=== PATIENT | female | born 1970 | race Caucasian/White ===

== ENCOUNTER → 2021-09-04 | Day surgery (SDC) | payer BC ==
--- NOTE | 2021-09-04 12:33 | RAD REPORT ---
EXAM DESCRIPTION: US - Guided FNA Non Breast - 09/04/2021 11:07 am CLINICAL HISTORY: E04.1 COMPARISON: No comparisons FINDINGS: Preoperative diagnosis: Left thyroid mass.. Post operative diagnosis: Same. Conscious Sedation: None Fluoroscopy time: None Contrast used: None Estimated blood loss: Minimal Specimens:25 gauge x 4 FNA specimens The left thyroid was prepped and draped in the usual sterile fashion. 1% lidocaine was infiltrated in to the subcutaneous tissues for local anesthesia. Real time ultrasound scanning of the left thyroid d emonstrated multiple masses, the largest inferiorly measuring 3.6 x 3.0 cm. Under ultrasound guidance , using 25 gauge FNA needles, 4 specimens were obtained of the largest mass and sent to pathology for evaluation. There were no complications. IMPRESSION: Successful ultrasound-guided FNA procedure left thyroid mass.
== END ==
LOC: FNA 10:07
PROVIDERS: ATTEND Nurse Practitioner Family
PROC: 0GJK3ZZ Inspection of Thyroid Gland, Percutaneous Approach (ICD-10-PCS; principal; 2021-09-04)
DX: E04.1 Nontoxic single thyroid nodule (principal)
CPT/HCPCS: 88162

== ENCOUNTER 2024-10-03 11:20 | Inpatient (IN) | payer BC ==
--- OUTSIDE RECORDS SUMMARY | 2024-10-03 18:14 | XMS REPORT | Continuity of Care Document ---
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 Name Role Phone BRITT PETTIT Attending Clinician Unavailable BERLIN POSADAS Attending Clinician Unavail able SHERINE JAMA Attending Clinician Unavailable TANYA_Susan Attending Clinician Unavailable ALICIA_GCJessieZW_Kadiderricka_S Attending Clinician Unavaila david Nicholson Attending Clinician Unavailable Lilly Martínez Attending Clinician [phone] Ravi Lo Attending Clinician [phone] JUAN CARLOS Attending Clinician Unavailable CONNIE Attending Clinician Unavailable Germania Calix Attending Clinician [phone] Rachid Attending Clinician Unavailable GERMANIA CALIX Attending Clinician Unavaila BRITT Mckinnon Admitting Clinician Unavailable SISYASSINE_Susan Admitting Clinician Unavailable ALICIA_SAYW_Devi_S Admitting Clinician Unavaila david Nicholson Admitting Clinician Unavailable WATERS_Kirstie Admitting Clinician Unavailable CONNIE Admitting Clinician Unavailable Rachid Admitting Clinician Unavailable Payers Payer Name Policy Type Policy Number Effective Date Expirati on Date Source [place] [id number] 2023 [place] [id number] 2018 00[place] [id number] 2019 00:00:00 Problems Condition Name Condition Details Condition Category Status Onset Date Resolution Date Last Treatment Date Treating Clinician Comments Source Disorder of thyroid gland Disorder of Thyroid Gland Problem Active 6 00:00: 00 [facility] Hypertrigl yceridemia Hypertrigl yceridemia Problem Active 2020-10 0 00:00: 00 [facility] Depressive disorder Depressive Disorder Problem Active 12-19 00:00: 00 [facility] Body mass index 40+ - severely obese Body Mass Index 40+ - Severely Obese Problem Active 12-19 00:00: 00 [facility] Essential hypertensi on Essential Hypertensi on Problem Active 04-12 00:00: 00 [facility] Obstructiv e sleep apnea of adult Obstructiv e Sleep Apnea of Adult Problem Active 06-08 00:00: 00 [facility] Hypothyroi dism Hypothyroi dism Problem Active 05-20 00:00: 00 [facility] Vitamin D deficiency Vitamin D Deficiency Problem Active 05-20 00:00: 00 [facility] Anxiety Anxiety Problem Active 05-20 00:00: 00 [facility] Tobacco user Tobacco User Problem Active 12-09 00:00: 00 [facility] Non-rheuma tic mitral regurgitat ion Non-rheuma tic Mitral Regurgitat ion Problem Active 12-09 00:00: 00 [facility] Mitral valve prolapse Mitral Valve Prolapse Problem Active 12-09 00:00: 00 [facility] Lymphedema of lower extremity Lymphedema of Lower Extremity Problem Active 12-09 00:00: 00 [facility] Edema of lower extremity Edema of Lower Extremity Problem Active 12-09 00:00: 00 [facility] Dyspnea on exertion Dyspnea on Exertion Problem Active 12-09 00:00: 00 [facility] Hypertensi ve disorder Hypertensi ve Disorder Problem Active [facility] Allergies, Adverse Reactions, Alerts Allergy Name Allergy Type Status Severity Reaction(s) Onset Date Inactive Date Treating Clinician Comments Source ALLERGIE S NOT ON FILE SYSTEMIC Active MHEOUT ALLERGIE S NOT ON FILE SYSTEMIC Active [facility]OUT Social History Smoking Status Start Date Stop Date Source Current Every Day Smoker [facility] Light Tobacco Smoker [facility] Medications Ordered Medication Name Filled Medication Name Start Date Stop Date Current Medication? Ordering Clinician Indication Dosage Frequency Signature (SIG) Comments Components Source dicyclomine 20 mg tablet Take 1 tablet 4 times a day by oral route as needed. dicyclomine 20 mg tablet Take 1 tablet 4 times a day by oral route as needed. No 1 QID dicyclomin e 20 mg tablet Take 1 tablet 4 times a day by oral route as needed. [facility] hydrochloro thiazide 25 mg tablet TAKE 1 TABLET BY MOUTH EVERY DAY hydrochloro thiazide 25 mg tablet TAKE 1 TABLET BY MOUTH EVERY DAY No hydrochlor othiazide 25 mg tablet TAKE 1 TABLET BY MOUTH EVERY DAY [facility] omeprazole 40 mg capsule,del ayed release TAKE 1 CAPSULE BY MOUTH EVERY DAY omeprazole 40 mg capsule,del ayed release TAKE 1 CAPSULE BY MOUTH EVERY DAY No omeprazole 40 mg capsule,de layed release TAKE 1 CAPSULE BY MOUTH EVERY DAY [facility] sertraline 50 mg tablet TAKE 1 TABLET BY MOUTH EVERY DAY FOR 30 DAYS sertraline 50 mg tablet TAKE 1 TABLET BY MOUTH EVERY DAY FOR 30 DAYS No sertraline 50 mg tablet TAKE 1 TABLET BY MOUTH EVERY DAY FOR 30 DAYS [facility] Sutab 1.479-0.188 -0.225 gram tablet Take 12 tablets twice a day by oral route for 1 day. Sutab 1.479-0.188 -0.225 gram tablet Take 12 tablets twice a day by oral route for 1 day. No 12 BID Sutab 1.479-0.18 8-0.225 gram tablet Take 12 tablets twice a day by oral route for 1 day. [facility] candesartan 4 mg tablet TAKE 1 TABLET BY MOUTH EVERY DAY candesartan 4 mg tablet TAKE 1 TABLET BY MOUTH EVERY DAY No 1 Q1D candesarta n 4 mg tablet TAKE 1 TABLET BY MOUTH EVERY DAY [facility] fenofibrate micronized 67 mg capsule TAKE 1 CAPSULE BY MOUTH EVERYDAY AT BEDTIME fenofibrate micronized 67 mg capsule TAKE 1 CAPSULE BY MOUTH EVERYDAY AT BEDTIME No 1capsul e(s) Q1D fenofibrat e micronized 67 mg capsule TAKE 1 CAPSULE BY MOUTH EVERYDAY AT BEDTIME [facility] levothyroxi ne 75 mcg tablet TAKE 1 TABLET BY MOUTH EVERY DAY levothyroxi ne 75 mcg tablet TAKE 1 TABLET BY MOUTH EVERY DAY No 1 Q1D levothyrox ine 75 mcg tablet TAKE 1 TABLET BY MOUTH EVERY DAY [facility] Auvelity 45 mg-105 mg tablet, extended release Take 1 tablet twice a day by oral route for 90 days. Auvelity 45 mg-105 mg tablet, extended release Take 1 tablet twice a day by oral route for 90 days. No 1 BID Auvelity 45 mg-105 mg tablet, extended release Take 1 tablet twice a day by oral route for 90 days. [facility] cholecalcif khris (vitamin D3) 1,250 mcg (50,000 unit) capsule TAKE 1 CAPSULE EVERY WEEK BY ORAL ROUTE DIRECTED FOR 42 DAYS, FOR LOW VITAMIN D LEVEL. cholecalcif khris (vitamin D3) 1,250 mcg (50,000 unit) capsule TAKE 1 CAPSULE EVERY WEEK BY ORAL ROUTE DIRECTED FOR 42 DAYS, FOR LOW VITAMIN D LEVEL. No cholecalci ferol (vitamin D3) 1,250 mcg (50,000 unit) capsule TAKE 1 CAPSULE EVERY WEEK BY ORAL ROUTE DIRECTED FOR 42 DAYS, FOR LOW VITAMIN D LEVEL. [facility] levothyroxi ne 25 mcg tablet TAKE 1 TABLET EVERY DAY BY ORAL ROUTE BEFORE MEALS FOR 42 DAYS, FOR THYROID FUNCTION. levothyroxi ne 25 mcg tablet TAKE 1 TABLET EVERY DAY BY ORAL ROUTE BEFORE MEALS FOR 42 DAYS, FOR THYROID FUNCTION. No levothyrox ine 25 mcg tablet TAKE 1 TABLET EVERY DAY BY ORAL ROUTE BEFORE MEALS FOR 42 DAYS, FOR THYROID FUNCTION. [facility] omeprazole 40 mg capsule,del ayed release TAKE 1 CAPSULE BY MOUTH EVERY DAY omeprazole 40 mg capsule,del ayed release TAKE 1 CAPSULE BY MOUTH EVERY DAY No omeprazole 40 mg capsule,de layed release TAKE 1 CAPSULE BY MOUTH EVERY DAY [facility] Immunizations Ordered Immunization Name Filled Immunization Name Date Status Comments Source COVID-19 (SARS-COV-2) vaccine, unspecified COVID-19 (SARS-COV-2) vaccine, unspecified Unknown Completed [facility] Vital Signs Vital Name Observation Time Observation Value Comments S ource Body Weight 2024-07-09 00:00:00 4229 [oz_av] [facility] Height 2024-07-09 00:00:00 63 [in_i] [facility] BMI (Body Mass Index) 2024-07-09 00:00:00 46.8 kg/m2 [facility] BP Systolic 2024-05-26 00:00:00 132 mm[Hg] [facility] BMI (Body Mass Index) 2024-05-26 00:00:00 48 kg/m2 [facility] BP Diastolic 2024-05-26 00:00:00 86 mm[Hg] [facility] Body Weight 2024-05-26 00:00:00 4336 [oz_av] [facility] Height 2024-05-26 00:00:00 63 [in_i] [facility] BP Systolic 2024-03-24 00:00:00 148 mm[Hg] [facility] Height 2024-03-24 00:00:00 63 [in_i] [facility] Body Weight 2024-03-24 00:00:00 4480 [oz_av] [facility] BMI (Body Mass Index) 2024-03-24 00:00:00 49.6 kg/m2 [facility] BP Diastolic 2024-03-24 00:00:00 76 mm[Hg] [facility] Body Weight 2023-12-02 00:00:00 4545.6 [oz_av] [facility] Height 2023-12-02 00:00:00 63 [in_i] [facility] BMI (Body Mass Index) 2023-12-02 00:00:00 50.3 kg/m2 [facility] BP Systolic 2023-12-02 00:00:00 152 mm[Hg] [facility] BP Diastolic 2023-12-02 00:00:00 78 mm[Hg] [facility] BP Systolic 2023-11-20 00:00:00 170 mm[Hg] [facility] BP Diastolic 2023-11-20 00:00:00 84 mm[Hg] [facility] Body Weight 2023-11-20 00:00:00 4554 [oz_av] [facility] Height 2023-11-20 00:00:00 63 [in_i] [facility] BMI (Body Mass Index) 2023-11-20 00:00:00 50.4 kg/m2 [facility] Height 2023-06-26 00:00:00 63 [in_i] [facility] Body Weight 2023-06-26 00:00:00 4373 [oz_av] [facility] BP Systolic 2023-06-26 00:00:00 140 mm[Hg] [facility] BP Diastolic 2023-06-26 00:00:00 73 mm[Hg] [facility] BMI (Body Mass Index) 2023-06-26 00:00:00 48.4 kg/m2 [facility] BP Diastolic 2023-04-09 00:00:00 77 mm[Hg] [facility] Height 2023-04-09 00:00:00 63 [in_i] [facility] BMI (Body Mass Index) 2023-04-09 00:00:00 48 kg/m2 [facility] BP Systolic 2023-04-09 00:00:00 147 mm[Hg] [facility] Body Weight 2023-04-09 00:00:00 4336 [oz_av] [facility] BP Diastolic 2023-03-31 00:00:00 79 mm[Hg] [facility] Height 2023-03-31 00:00:00 63 [in_i] [facility] BMI (Body Mass Index) 2023-03-31 00:00:00 48.6 kg/m2 [facility] BP Systolic 2023-03-31 00:00:00 145 mm[Hg] [facility] Body Weight 2023-03-31 00:00:00 274.4 [lb_av] [facility] BP Diastolic 2023-03-26 00:00:00 84 mm[Hg] [facility] Height 2023-03-26 00:00:00 63 [in_i] [facility] BMI (Body Mass Index) 2023-03-26 00:00:00 49.1 kg/m2 [facility] BP Systolic 2023-03-26 00:00:00 161 mm[Hg] [facility] Body Weight 2023-03-26 00:00:00 4432 [oz_av] [facility] BP Diastolic 2023-01-22 00:00:00 75 mm[Hg] [facility] Height 2023-01-22 00:00:00 63 [in_i] [facility] BMI (Body Mass Index) 2023-01-22 00:00:00 51.2 kg/m2 [facility] BP Systolic 2023-01-22 00:00:00 158 mm[Hg] [facility] Body Weight 2023-01-22 00:00:00 4624 [oz_av] [facility] BP Diastolic 2022-05-14 00:00:00 76 mm[Hg] [facility] Height 2022-05-14 00:00:00 63 [in_i] [facility] BMI (Body Mass Index) 2022-05-14 00:00:00 49.2 kg/m2 [facility] BP Systolic 2022-05-14 00:00:00 166 mm[Hg] [facility] Body Weight 2022-05-14 00:00:00 4448 [oz_av] [facility] BP Diastolic 2022-05-08 00:00:00 87 mm[Hg] [facility] Height 2022-05-08 00:00:00 63 [in_i] [facility] BMI (Body Mass Index) 2022-05-08 00:00:00 48.9 kg/m2 [facility] BP Systolic 2022-05-08 00:00:00 153 mm[Hg] [facility] Body Weight 2022-05-08 00:00:00 4416 [oz_av] [facility] BP Diastolic 2022-04-29 00:00:00 68 mm[Hg] [facility] Height 2022-04-29 00:00:00 63 [in_i] [facility] BMI (Body Mass Index) 2022-04-29 00:00:00 48.5 kg/m2 [facility] BP Systolic 2022-04-29 00:00:00 144 mm[Hg] [facility] Body Weight 2022-04-29 00:00:00 4384 [oz_av] [facility] BP Diastolic 2022-01-25 00:00:00 59 mm[Hg] [facility] Height 2022-01-25 00:00:00 63 [in_i] [facility] BMI (Body Mass Index) 2022-01-25 00:00:00 48.7 kg/m2 [facility] BP Systolic 2022-01-25 00:00:00 152 mm[Hg] [facility] Body Weight 2022-01-25 00:00:00 4400 [oz_av] [facility] BP Diastolic 2022-01-17 00:00:00 73 mm[Hg] [facility] Height 2022-01-17 00:00:00 63 [in_i] [facility] BMI (Body Mass Index) 2022-01-17 00:00:00 49.1 kg/m2 [facility] BP Systolic 2022-01-17 00:00:00 157 mm[Hg] [facility] Body Weight 2022-01-17 00:00:00 4432 [oz_av] [facility] BP Diastolic 2022-01-08 00:00:00 67 mm[Hg] [facility] Height 2022-01-08 00:00:00 63 [in_i] [facility] BMI (Body Mass Index) 2022-01-08 00:00:00 49.1 kg/m2 [facility] BP Systolic 2022-01-08 00:00:00 144 mm[Hg] [facility] Body Weight 2022-01-08 00:00:00 4432 [oz_av] [facility] BP Diastolic 2021-12-21 00:00:00 64 mm[Hg] [facility] Height 2021-12-21 00:00:00 63 [in_i] [facility] BMI (Body Mass Index) 2021-12-21 00:00:00 31.2 kg/m2 [facility] BP Systolic 2021-12-21 00:00:00 164 mm[Hg] [facility] Body Weight 2021-12-21 00:00:00 2816 [oz_av] [facility] BP Diastolic 2021-12-14 00:00:00 61 mm[Hg] [facility] Height 2021-12-14 00:00:00 63 [in_i] [facility] BMI (Body Mass Index) 2021-12-14 00:00:00 47.7 kg/m2 [facility] BP Systolic 2021-12-14 00:00:00 138 mm[Hg] [facility] Body Weight 2021-12-14 00:00:00 4304 [oz_av] [facility] BP Diastolic 2021-12-07 00:00:00 75 mm[Hg] [facility] Height 2021-12-07 00:00:00 63 [in_i] [facility] BMI (Body Mass Index) 2021-12-07 00:00:00 48.2 kg/m2 [facility] BP Systolic 2021-12-07 00:00:00 152 mm[Hg] [facility] Body Weight 2021-12-07 00:00:00 4352 [oz_av] [facility] BP Diastolic 2021-11-30 00:00:00 70 mm[Hg] [facility] Height 2021-11-30 00:00:00 63 [in_i] [facility] BMI (Body Mass Index) 2021-11-30 00:00:00 48 kg/m2 [facility] BP Systolic 2021-11-30 00:00:00 113 mm[Hg] [facility] Body Weight 2021-11-30 00:00:00 4338.4 [oz_av] [facility] BP Diastolic 2021-11-22 00:00:00 80 mm[Hg] [facility] Height 2021-11-22 00:00:00 63 [in_i] [facility] BMI (Body Mass Index) 2021-11-22 00:00:00 47.7 kg/m2 [facility] BP Systolic 2021-11-22 00:00:00 134 mm[Hg] [facility] Body Weight 2021-11-22 00:00:00 4309 [oz_av] [facility] BP Diastolic 2021-11-14 00:00:00 74 mm[Hg] [facility] Height 2021-11-14 00:00:00 63 [in_i] [facility] BMI (Body Mass Index) 2021-11-14 00:00:00 48.3 kg/m2 [facility] BP Systolic 2021-11-14 00:00:00 148 mm[Hg] [facility] Body Weight 2021-11-14 00:00:00 4362 [oz_av] [facility] BP Diastolic 2021-11-02 00:00:00 68 mm[Hg] [facility] Height 2021-11-02 00:00:00 63 [in_i] [facility] BMI (Body Mass Index) 2021-11-02 00:00:00 48.8 kg/m2 [facility] BP Systolic 2021-11-02 00:00:00 148 mm[Hg] [facility] Body Weight 2021-11-02 00:00:00 4410 [oz_av] [facility] BP Diastolic 2021-10-25 00:00:00 73 mm[Hg] [facility] Height 2021-10-25 00:00:00 63 [in_i] [facility] BMI (Body Mass Index) 2021-10-25 00:00:00 49.2 kg/m2 [facility] BP Systolic 2021-10-25 00:00:00 145 mm[Hg] [facility] Body Weight 2021-10-25 00:00:00 4448 [oz_av] [facility] BP Diastolic 2021-08-15 00:00:00 70 mm[Hg] [facility] Height 2021-08-15 00:00:00 63 [in_i] [facility] BMI (Body Mass Index) 2021-08-15 00:00:00 50.6 kg/m2 [facility] BP Systolic 2021-08-15 00:00:00 133 mm[Hg] [facility] Body Weight 2021-08-15 00:00:00 4569.6 [oz_av] [facility] BP Diastolic 2021-08-02 00:00:00 66 mm[Hg] [facility] Height 2021-08-02 00:00:00 63 [in_i] [facility] BMI (Body Mass Index) 2021-08-02 00:00:00 50.7 kg/m2 [facility] BP Systolic 2021-08-02 00:00:00 138 mm[Hg] [facility] Body Weight 2021-08-02 00:00:00 4576 [oz_av] [facility] BP Diastolic 2021-07-18 00:00:00 85 mm[Hg] [facility] Height 2021-07-18 00:00:00 63 [in_i] [facility] BMI (Body Mass Index) 2021-07-18 00:00:00 50.8 kg/m2 [facility] BP Systolic 2021-07-18 00:00:00 154 mm[Hg] [facility] Body Weight 2021-07-18 00:00:00 4588.8 [oz_av] [facility] BP Diastolic 2021-04-17 00:00:00 69 mm[Hg] [facility] Height 2021-04-17 00:00:00 63 [in_i] [facility] BMI (Body Mass Index) 2021-04-17 00:00:00 49.1 kg/m2 [facility] BP Systolic 2021-04-17 00:00:00 143 mm[Hg] [facility] Body Weight 2021-04-17 00:00:00 4438.4 [oz_av] [facility] BP Diastolic 2020-12-19 00:00:00 69 mm[Hg] [facility] Height 2020-12-19 00:00:00 63 [in_i] [facility] BMI (Body Mass Index) 2020-12-19 00:00:00 48.9 kg/m2 [facility] BP Systolic 2020-12-19 00:00:00 145 mm[Hg] [facility] Body Weight 2020-12-19 00:00:00 4416 [oz_av] [facility] Procedures Procedure Date / Time Performed Performing Clinicia n Source XR, chest, 2 view 2023-11-20 00:00:00 [facility] US, abdomen, complete 2023-03-31 00:00:00 [facility] US, thyroid 2021-08-02 00:00:00 [facility] US, abdomen + pelvis 2021-04-17 00:00:00 [facility] electrocardiogram 2020-12-19 00:00:00 [facility] XR, chest, 2 view 2020-12-19 00:00:00 [facility] Plan of Care Planned Activity Planned Date Details Comments Source Diagnostic Test Pending 2023-03-31 00:00:00 Hepatitis C IgG Ab, qual, serum [code = Hepatitis C IgG Ab, qual, serum] [facility] Encounters Start Date/Time End Date/Time Encounter Type Admission Type Attending [facility] Care Department Encounter ID Source 2024-09-28 03:19:00 Inpatient ER BRITT PETTIT [facility] [id number] [facility] 2023-04-14 13:30:00 Inpatient BERLIN BACH [facility] [id number] [facility] 2024-09-29 11:10:00 2024-10-03 16:40:00 Inpatient ER BRITT PETTIT [facility] [id number] [facility] 2024-09-27 21:48:00 2024-09-27 21:48:00 Emergency ER SHERINE JAMA [facility] [id number] [facility] 2024-07-09 00:00:00 2024-07-09 00:00:00 FELIZ Saul, CREATIVE INTERN, SUPPLY CHAIN PLANNER-C: [address], [place] [address] , Ph. [facility], FELIZ Saul, SUPPLY CHAIN PLANNER-C [id number] 004 [facility] 2024-05-26 00:00:00 2024-05-26 00:00:00 CANDIDA SoaresP-C: [address], [place] [address] , Ph. [facility], CANDIDA SOARESP-C [id number] [facility] 2024-04-05 12:19:48 2024-04-05 12:19:58 Outpatient Elective MHEOUT MHEOUT [id number] [facility] 2024-03-24 00:00:00 2024-03-24 00:00:00 Dory Cain, [facility]: [address], [place] [address] , Ph. [phone] [facility], [facility], [facility] [id number] [facility] 2023-12-02 00:00:00 2023-12-02 00:00:00 Lilly Martínez, MSN, CREATIVE INTERN, SUPPLY CHAIN PLANNER-C: [address], [place] [address] , Ph. [facility], Lilly Martínez, MSN, SUPPLY CHAIN PLANNER-C [id number] [facility] 2023-11-20 00:00:00 2023-11-20 00:00:00 Outpatient [facility] [id number] [facility] 2023-11-20 00:00:00 2023-11-20 00:00:00 Lilly Martínez, MSN, CREATIVE INTERN, SUPPLY CHAIN PLANNER-C: [address], [place] [address] , Ph. [facility], Lilly Martínez, MSN, SUPPLY CHAIN PLANNER-C [id number] [facility] 2023-11-12 00:00:00 2023-11-12 00:00:00 Outpatient [facility] [id number] [facility] 2023-08-01 00:00:00 2023-08-01 00:00:00 Outpatient GC_[email or web address] diyala_S [facility] [id number] [facility] 2023-07-31 00:00:2023-07-31 00:00:00 Outpatient [facility] [id number] [facility] 2023-06-26 00:00:00 2023-06-26 00:00:00 Lilly Martínez, MSN, CREATIVE INTERN, SUPPLY CHAIN PLANNER-C: [address], [place] [address] , Ph. [facility], Lilly Martínez, MSN, SUPPLY CHAIN PLANNER-C [id number] [facility] 2023-06-06 00:00:00 2023-06-06 00:00:00 Outpatient [facility] [id number] [facility] 2023-05-07 00:00:00 2023-05-07 00:00:00 Outpatient [facility] [id number] [facility] 2023-05-07 00:00:00 2023-05-07 00:00:00 FELIZ Saul, CREATIVE INTERN, SUPPLY CHAIN PLANNER-C: [address], [address], [place] [address] , Ph. [facility], Lilly Martínez, FELIZ, SUPPLY CHAIN PLANNER-C [id number] [facility] 2023-04-09 00:00:00 2023-04-09 00:00:00 Outpatient [facility] [id number] [facility] 2023-04-09 00:00:00 2023-04-09 00:00:00 Outpatient [facility] [id number] [facility] 2023-04-09 00:00:00 2023-04-09 00:00:00 FELIZ Saul, CREATIVE INTERN, SUPPLY CHAIN PLANNER-C: Rhonda [address], [address], [place] [address] , Ph. [facility], Lilly Martínez, MSN, SUPPLY CHAIN PLANNER-C [id number] [facility] 2023-04-01 00:00:00 2023-04-01 00:00:00 Outpatient Ferguson_Ro bin [facility] [id number] [facility] 2023-03-31 00:00:00 2023-03-31 00:00:00 Outpatient Ferguson_Ro bin [facility] [id number] [facility] 2023-03-31 00:00:00 2023-03-31 00:00:00 Berlin Posadas MD: [id number], [address], [place] [address] , Ph. [facility] [id number] [facility] 2023-03-26 00:00:00 2023-03-26 00:00:00 FELIZ Saul, CREATIVE INTERN, SUPPLY CHAIN PLANNER-C: Emma Sharma [place], [address], [place] [address] , Ph. [facility], Lilly Martínez, MSN, SUPPLY CHAIN PLANNER-C [id number] [facility] 2023-03-11 00:00:00 2023-03-11 00:00:00 Outpatient Ferguson_Ro bin [facility] [id number] [facility] 2023-02-19 00:00:00 2023-02-19 00:00:00 Outpatient [facility] [id number] [facility] 2023-01-22 00:00:00 2023-01-22 00:00:00 Outpatient [facility] [id number] [facility] 2023-01-22 00:00:00 2023-01-22 00:00:00 Lilly Martínez, MSN, CREATIVE INTERN, SUPPLY CHAIN PLANNER-C: [address], [address], [place] [address] , Ph. [facility], Lilly Martínez, MSN, SUPPLY CHAIN PLANNER-C [id number] [facility] 2022-05-14 00:00:00 2022-05-14 00:00:00 Outpatient [facility] [id number] [facility] 2022-05-14 00:00:00 2022-05-14 00:00:00 Outpatient Lilly Martínez [facility] [id number] 2022-05-14 00:00:00 2022-05-14 00:00:00 FELIZ Saul, CREATIVE INTERN, SUPPLY CHAIN PLANNER-C: Rhonda [address], [address], [place] [address] , Ph. [facility], Lilly Martínez, FELIZ, SUPPLY CHAIN PLANNER-C [id number] [facility] 2022-05-10 00:00:00 2022-05-10 00:00:00 Outpatient [facility] [id number] [facility] 2022-05-10 00:00:00 2022-05-10 00:00:00 Outpatient Lilly Martínez [facility] [id number] 2022-05-10 00:00:00 2022-05-10 00:00:00 FELIZ Saul, CREATIVE INTERN, SUPPLY CHAIN PLANNER-C: Rhonda [address], [address], [place] [address] , Ph. [facility], Lilly Martínez, MSN, SUPPLY CHAIN PLANNER-C [id number] [facility] 2022-05-09 00:00:00 2022-05-09 00:00:00 Outpatient [facility] [id number] [facility] 2022-05-09 00:00:00 2022-05-09 00:00:00 Outpatient Lilly Martínez [facility] [id number] 2022-05-09 00:00:00 2022-05-09 00:00:00 Lilly Martínez, MSN, CREATIVE INTERN, SUPPLY CHAIN PLANNER-C: Emma Ruiz [facility] [address], [address], [place] [address] , Ph. [facility], Lilly Martínez, MSN, SUPPLY CHAIN PLANNER-C [id number] [facility] 2022-05-08 00:00:00 2022-05-08 00:00:00 Outpatient [facility] [id number] [facility] 2022-05-08 00:00:00 2022-05-08 00:00:00 Outpatient Lilly Martínez [facility] [id number] 2022-05-08 00:00:00 2022-05-08 00:00:00 Lilly Martínez, MSN, CREATIVE INTERN, SUPPLY CHAIN PLANNER-C: Emma Ruiz [facility] [address], [address], [place] [address] , Ph. [facility], Lilly Martínez, MSN, SUPPLY CHAIN PLANNER-C [id number] [facility] 2022-04-29 04:38:00 2022-04-29 04:38:00 Outpatient [facility]C [facility] [id number] [facility] 2022-04-29 00:00:00 2022-04-29 00:00:00 Outpatient Ravi Lo [facility] [id number] 2022-04-29 00:00:00 2022-04-29 00:00:00 Ravi Lo, DO: [address], [place] [address] , Ph. [facility], DR. LO [id number] [facility] 2022-04-03 04:29:00 2022-04-03 04:29:00 Outpatient [facility] [id number] [facility] 2022-04-03 00:00:00 2022-04-03 00:00:00 FELIZ Saul, CREATIVE INTERN, SUPPLY CHAIN PLANNER-C: [address], [address], [place] [address] , Ph. [facility], FELIZ Saul, SUPPLY CHAIN PLANNER-C [id number] [facility] 2022-04-03 00:00:00 2022-04-03 00:00:00 Outpatient Lilly Martínez [facility] [id number] 2022-03-01 11:44:00 2022-03-01 11:44:00 Outpatient [facility]C [facility] [id number] [facility] 2022-03-01 00:00:00 2022-03-01 00:00:00 Lilly Martínez, MSN, CREATIVE INTERN, SUPPLY CHAIN PLANNER-C: Emma Ruiz [address], [address], [place] [address] , Ph. [facility], Lilly Martínez MSN, SUPPLY CHAIN PLANNER-C [id number] [facility] 2022-03-01 00:00:00 2022-03-01 00:00:00 Outpatient Lilly Martínez [facility] [id number] 1042-05-02 05:20:00 2022-02-04 05:20:00 Outpatient [facility] [id number] [facility] 2022-01-25 03:04:00 2022-01-25 03:04:00 Outpatient [facility] [id number] [facility] 2022-01-25 00:00:00 2022-01-25 00:00:00 FELIZ Saul, CREATIVE INTERN, SUPPLY CHAIN PLANNER-C: Rhonda [address], [address], [place] [address] , Ph. [facility], FELIZ Saul, SUPPLY CHAIN PLANNER-C [id number] [facility] 2022-01-25 00:00:00 2022-01-25 00:00:00 Outpatient Lilly Martínez [facility] [id number] 2022-01-17 05:46:00 2022-01-17 05:46:00 Outpatient TANYA_Susan [facility] [id number] [facility] 2022-01-17 00:00:00 2022-01-17 00:00:00 Lilly Martínez MSN, CREATIVE INTERN, SUPPLY CHAIN PLANNER-C: [address], [address], [place] [address] , Ph. [facility], Lilly Martínez, MSN, SUPPLY CHAIN PLANNER-C [id number] [facility] 2022-01-08 11:44:00 2022-01-08 11:44:00 Outpatient [facility]_C [facility] [id number] [facility] 2022-01-08 00:00:00 2022-01-08 00:00:00 Lilly Martínze, MSN, CREATIVE INTERN, SUPPLY CHAIN PLANNER-C: [address], [address], [place] [address] , Ph. [facility], Lilly Martínez, MSN, SUPPLY CHAIN PLANNER-C [id number] [facility] 2022-01-08 00:00:00 2022-01-08 00:00:00 Outpatient Lilly Martínez [facility] [id number] 2021-12-31 08:54:00 2021-12-31 08:54:00 Outpatient [facility]C [facility] [id number] [facility] 2021-12-21 12:23:00 2021-12-21 12:23:00 Outpatient [facility]_C [facility] [id number] [facility] 2021-12-21 00:00:00 2021-12-21 00:00:00 Lilly Martínez, MSN, CREATIVE INTERN, SUPPLY CHAIN PLANNER-C: [address], [address], [place] [address] , Ph. [facility], Lilly Martínez, MSN, SUPPLY CHAIN PLANNER-C [id number] [facility] 2021-12-21 00:00:00 2021-12-21 00:00:00 Outpatient Lilly Martínez [facility] [id number] 2021-12-17 07:50:00 2021-12-17 07:50:00 Outpatient [facility]_C [facility] [id number] [facility] 2021-12-14 10:34:00 2021-12-14 10:34:00 Outpatient [facility]C [facility] [id number] [facility] 2021-12-14 00:00:00 2021-12-14 00:00:00 Lilly Martínez, MSN, CREATIVE INTERN, SUPPLY CHAIN PLANNER-C: [address], [address], [place] [address] , Ph. [facility], Lilly Martínez, MSN, SUPPLY CHAIN PLANNER-C [id number] [facility] 2021-12-14 00:00:00 2021-12-14 00:00:00 Outpatient Lilly Martínez [facility] [id number] 2021-12-11 05:55:00 2021-12-11 05:55:00 Outpatient [facility]IS[facility]_C [facility] [id number] [facility] 2021-12-11 00:00:00 2021-12-11 00:00:00 Lilly Martínez, MSN, CREATIVE INTERN, SUPPLY CHAIN PLANNER-C: [address], [place] [address] , Ph. [facility], Lilly Martínez, MSN, SUPPLY CHAIN PLANNER-C [id number] [facility] 2021-12-11 00:00:00 2021-12-11 00:00:00 Outpatient Tanya, Lilly [facility] [id number] 2021-12-07 05:27:00 2021-12-07 05:27:00 Outpatient [facility]C [facility] [id number] [facility] 2021-12-07 00:00:00 2021-12-07 00:00:00 Lilly Martínez, MSN, CREATIVE INTERN, SUPPLY CHAIN PLANNER-C: Emma Ru[address], [address], [address], [place] [address] , Ph. [facility], Lilly Martínez, MSN, SUPPLY CHAIN PLANNER-C [id number] [facility] 2021-12-07 00:00:00 2021-12-07 00:00:00 Outpatient Lilly Martínez [facility] [id number] 2021-12-03 08:57:00 2021-12-03 08:57:00 Outpatient [facility]C [facility] [id number] [facility] 2021-11-30 12:07:00 2021-11-30 12:07:00 Outpatient [facility]C [facility] [id number] [facility] 2021-11-30 00:00:00 2021-11-30 00:00:00 Lilly Martínez, MSN, CREATIVE INTERN, SUPPLY CHAIN PLANNER-C: Emma [address], [address], [address], [place] [address] , Ph. [facility], Lilly Martínez, MSN, SUPPLY CHAIN PLANNER-C [id number] [facility] 2021-11-30 00:00:00 2021-11-30 00:00:00 Outpatient Lilly Martínez [facility] [id number] 2021-11-27 12:19:00 2021-11-27 12:19:00 Outpatient SISSON_C [facility] [id number] [facility] 2021-11-26 08:21:00 2021-11-26 08:21:00 Outpatient WATERS_S [facility] [id number] [facility] 2021-11-22 10:51:00 2021-11-22 10:51:00 Outpatient WATERS_S [facility] [id number] [facility] 2021-11-22 00:00:00 2021-11-22 00:00:00 Lilly Martínez, MSN, CREATIVE INTERN, SUPPLY CHAIN PLANNER-C: [address], [address], [place] [address] , Ph. [facility], Lilly Martínez, MSN, SUPPLY CHAIN PLANNER-C [id number] [facility] 2021-11-22 00:00:00 2021-11-22 00:00:00 Outpatient Lilly Martínez [facility] [id number] 2021-11-19 02:48:00 2021-11-19 02:48:00 Outpatient WATERS_S [facility] [id number] [facility] 2021-11-14 11:21:00 2021-11-14 11:21:00 Outpatient WATERS_S [facility] [id number] [facility] 2021-11-14 00:00:00 2021-11-14 00:00:00 Lilly Marítnez, MSN, CREATIVE INTERN, SUPPLY CHAIN PLANNER-C: [address], [place] [address] , Ph. [facility], Lilly Martínez, MSN, SUPPLY CHAIN PLANNER-C [id number] [facility] 2021-11-14 00:00:00 2021-11-14 00:00:00 Outpatient Lilly Martínez [facility] [id number] 2021-11-02 11:58:00 2021-11-02 11:58:00 Outpatient WATERS_S [facility] [id number] [facility] 2021-11-02 00:00:00 2021-11-02 00:00:00 Lilly Martínez, MSN, CREATIVE INTERN, SUPPLY CHAIN PLANNER-C: [address], [address], [place] [address] , Ph. [facility], Lilly Martínez, MSN, SUPPLY CHAIN PLANNER-C [id number] [facility] 2021-11-02 00:00:00 2021-11-02 00:00:00 Outpatient Lilly Martínez [facility] [id number] 2021-10-25 05:12:00 2021-10-25 05:12:00 Outpatient ARPAN_S [facility] [id number] [facility] 2021-10-25 00:00:00 2021-10-25 00:00:00 Outpatient Lilly Martínez [facility] [id number] 2021-10-25 00:00:00 2021-10-25 00:00:00 Lilly Martínez, MSN, CREATIVE INTERN, SUPPLY CHAIN PLANNER-C: [address], [place] [address] , Ph. [facility], Lilly Martínez, MSN, SUPPLY CHAIN PLANNER-C [id number] [facility] 2021-10-24 05:47:00 2021-10-24 05:47:00 Outpatient W[facility]ERS_S [facility] [id number] [facility] 2021-10-04 04:17:00 2021-10-04 04:17:00 Outpatient WATERS_S [facility] [id number] [facility] 2021-08-15 05:25:00 2021-08-15 05:25:00 Outpatient SCHAUBROECK _L [facility] [id number] [facility] 2021-08-15 00:00:00 2021-08-15 00:00:00 Outpatient Germania Calix [facility] [id number] 2021-08-15 00:00:00 2021-08-15 00:00:00 Germania talbot, AGNP-C: [address] [place] [address], [address] [place] [address] , Ph. [facility] [id number] [facility] 2021-08-02 03:43:00 2021-08-02 03:43:00 Outpatient SCHAUBROECK _L [facility] [id number] [facility] 2021-08-02 00:00:00 2021-08-02 00:00:00 Germania talbot AGNP-C: [address] [place] [address], [address] [place] [address] , Ph. [facility] [id number] [facility] 2021-08-02 00:00:00 2021-08-02 00:00:00 Outpatient Germania Calix [facility] [id number] 2021-07-18 01:02:00 2021-07-18 01:02:00 Outpatient SCHAUBROECK _L [facility] [id number] [facility] 2021-07-18 00:00:00 2021-07-18 00:00:00 PAIGE Deleon-C: [address] [place] [address], [address] [place] [address] , Ph. [facility] [id number] [facility] 2021-07-18 00:00:00 2021-07-18 00:00:00 Outpatient JennGermania jean-baptiste [facility] [id number] 2021-04-17 05:48:00 2021-04-17 05:48:00 Outpatient SCHAUBROECK _L [facility] [id number] [facility] 2021-04-17 00:00:00 2021-04-17 00:00:00 PAIGE Deleon-C: [address] [place] [address], [address] [place] [address] , Ph. [facility] [id number] [facility] 2021-04-17 00:00:00 2021-04-17 00:00:00 Outpatient JennGermania jean-baptiste [facility] [id number] 2020-12-19 01:59:00 2020-12-19 01:59:00 Outpatient SCHAUBROECK _L [facility] [id number] [facility] 2020-12-19 00:00:00 2020-12-19 00:00:00 Germania talbot AGNP-: [address] [facility], [address], [place] [address] , Ph. [facility] [place] [facility] [id number] [facility] 2020-12-19 00:00:00 2020-12-19 00:00:00 Outpatient Germania Calix [facility] [id number] 2020-06-29 09:44:00 2020-06-29 09:44:00 Outpatient Rachid [facility] [id number] [facility] 2020-04-13 11:53:00 2020-04-13 11:53:00 Outpatient HILTON CUEVASGERMANIA HU [facility] [id number] [facility] Results Test Description Test Time Test Comments Results Result Co mments Source [facility] Ag [Presence] in Respiratory specimen by Rapid [id number] 14:58:00* Test Item Value Reference Range Interpretation Comme nts SARS CoV 2 (test code = SARS CoV 2) negative [facility] [Mass/volume] in [id number] 00:00:00* Test Item Value Reference Range Interpretation Comme nts Thiamine [Moles/volume] in B lood (test code = 28978-4) 151.7 nmol/L 66.5-200.0 [facility] (T3).reverse [Mass/volume] in Serum or [id number] 00:00:00* Test Item Value Reference Range Interpretation Comme nts Triiodothyronine (T3).revers e [Mass/volume] in Serum or Plasma (test code = 3052-8) 14.1 NG/dL 9.2-24.1 [facility] and TSH panel - Serum or Plasma 2021-07-26 00:00:00* Test Item Value Reference Range Interpretation Comme nts Thyrotropin [Units/volume] i n Serum or Plasma by Detection limit <= 0.005 mIU/L (test code = 15374-1) 10.400 uIU/mL 0.450-4.500 H Thyroxine (T4) free [Mass/volume] in Serum or Plasma (test code = 3024-7) 0.82 NG/dL 0.82-1.77 [facility] W Auto Differential panel - [id number] 00:00:00* Test Item Value Reference Range Interpretation Comme nts Leukocytes [#/volume] in Blo od by Automated count (test code = 6690-2) 9.5 x10e3/uL 3.4-10.8 Erythrocytes [#/volume] in Blood by Automated count (test code = 789-8) 4.27 x10e6/uL 3.77-5.28 Hemoglobin [Mass/volume] in Blood (test code = 718-7) 12.5 g/dL 11.1-15.9 Hematocrit [Volume Fraction] of Blood by Automated count (test code = 4544-3) 38.6 % 34.0-46.6 Erythrocyte mean corpuscular volume [Entitic volume] by Automated count (test code = 787-2) 90 fL 79-97 Erythrocyte mean corpuscular hemoglobin [Entitic mass] by Automated count (test code = 785-6) 29.3 pg 26.6-33.0 Erythrocyte mean corpuscular hemoglobin concentration [Mass/volume] by Automated count (test code = 786-4) 32.4 g/dL 31.5-35.7 Erythrocyte distribution wid th [Ratio] by Automated count (test code = 788-0) 13.1 % 11.7-15.4 Platelets [#/volume] in Bloo d by Automated count (test code = 777-3) 303 x10e3/uL 150-450 Neutrophils/100 leukocytes i n Blood by Automated count (test code = 770-8) 64 % not estab. Lymphocytes/100 leukocytes i n Blood by Automated count (test code = 736-9) 26 % not estab. Monocytes/100 leukocytes in Blood by Automated count (test code = 5905-5) 6 % not estab. Eosinophils/100 leukocytes i n Blood by Automated count (test code = 713-8) 2 % not estab. Basophils/100 leukocytes in Blood by Automated count (test code = 706-2) 1 % not estab. 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 Morphology [Interpretation] in Blood Narrative (test code = 12666-5) 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 Serum or [id number] 00:00:00* Test Item Value Reference Range Interpretation Comme nts Glucose [Mass/volume] in Serum or Plasma (test code = 2345-7) 97 mg/dL 65-99 Urea nitrogen [Mass/volume] in Serum or Plasma (test code = 3094-0) 15 mg/dL 6-24 Creatinine [Mass/volume] in Serum or Plasma (test code = 2160-0) 0.79 mg/dL 0.57-1.00 Glomerular filtration rate/1.73 sq M.predicted among non-blacks [Volume Rate/Area] in Serum, Plasma or Blood by Creatinine-based formula (CKD-EPI) (test code = 45675-2) 92 mL/min/1.73 >59 Glomerular filtration rate/1.73 sq M.predicted among blacks [Volume Rate/Area] in Serum, Plasma or Blood by Creatinine-based formula (CKD-EPI) (test code = 61685-2) 106 mL/min/1.73 >59 Urea nitrogen/Creatinine [Mass Ratio] in Serum or Plasma (test code = 3097-3) 19 9-23 Sodium [Moles/volume] in Serum or Plasma (test code = 2951-2) 137 mmol/L 134-144 Potassium [Moles/volume] in Serum or Plasma (test code = 2823-3) 4.5 mmol/L 3.5-5.2 Chloride [Moles/volume] in Serum or Plasma (test code = 2075-0) 99 mmol/L 96-106 Carbon dioxide, total [Moles/volume] in Serum or Plasma (test code = 2027-9) 27 mmol/L 20-29 Calcium [Mass/volume] in Serum or Plasma (test code = 29935-4) 9.1 mg/dL 8.7-10.2 Protein [Mass/volume] in Serum or Plasma (test code = 2885-2) 7.1 g/dL 6.0-8.5 Albumin [Mass/volume] in Serum or Plasma (test code = 1751-7) 4.0 g/dL 3.8-4.8 Globulin [Mass/volume] in Serum by calculation (test code = 34556-0) 3.1 g/dL 1.5-4.5 Albumin/Globulin [Mass Ratio ] in Serum or Plasma (test code = 1759-0) 1.3 1.2-2.2 Bilirubin.total [Mass/volume ] in Serum or Plasma (test code = 1974-2) 0.2 mg/dL 0.0-1.2 Alkaline phosphatase [Enzymatic activity/volume] in Serum or Plasma (test code = 6768-6) 81 IU/L 44-121 Aspartate aminotransferase [Enzymatic activity/volume] in Serum or Plasma (test code = 1920-8) 16 IU/L 0-40 Alanine aminotransferase [Enzymatic activity/volume] in Serum or Plasma (test code = 1742-6) 17 IU/L 0-32 [facility] - Serum or [id number] 00:00:00* Test Item Value Reference Range Interpretation Comme nts Cholesterol [Mass/volume] in Serum or Plasma (test code = 2093-3) 176 mg/dL 100-199 Triglyceride [Mass/volume] i n Serum or Plasma (test code = 2571-8) 152 mg/dL 0-149 H Cholesterol in HDL [Mass/vol ume] in Serum or Plasma (test code = 2085-9) 42 mg/dL >39 Cholesterol in VLDL [Mass/vo lume] in Serum or Plasma by calculation (test code = 80783-4) 27 mg/dL 5-40 Cholesterol in LDL [Mass/vol ume] in Serum or Plasma by calculation (test code = 30498-8) 107 mg/dL 0-99 H Laboratory comment [Text] in Report Narrative (test code = 02385-2) 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 Cholesterol in LDL/Cholester ol in HDL [Mass Ratio] in Serum or Plasma (test code = 46939-0) 2.5 ratio 0.0-3.2 [facility] [Mass/volume] in Serum or [id number] 00:00:00* Test Item Value Reference Range Interpretation Comme nts Iron binding capacity [Mass/ volume] in Serum or Plasma (test code = 2500-7) 345 ug/dL 250-450 Iron binding capacity.unsatu rated [Mass/volume] in Serum or Plasma (test code = 2501-5) 300 ug/dL 131-425 Iron [Mass/volume] in Serum or Plasma (test code = 2498-4) 45 ug/dL 27-159 Iron saturation [Mass Fracti on] in Serum or Plasma (test code = 2502-3) 13 % 15-55 L [facility]olate+Cyanocobalamin [Interpretation] in Serum or [id number] 00:00:00* Test Item Value Reference Range Interpretation Comme nts Cobalamin (Vitamin B12) [Mass/volume] in Serum or Plasma (test code = 2132-9) 249 pg/mL 232-1245 Folate [Mass/volume] in Seru m or Plasma (test code = 2284-8) 8.0 NG/mL >3.0 [facility]25-Hydroxyvitamin D3+25-Hydroxyvitamin D2 [Mass/volume] in Serum or [id number] 00:00:00* Test Item Value Reference Range Interpretation Comme nts 25-Hydroxyvitamin D3+25-Hydroxyvitamin D2 [Mass/volume] in Serum or Plasma (test code = 20074-5) 12.6 NG/mL 30.0-100.0 L [facility] [Mass/volume] in Serum or Plasma 2021-07-26 00:00:00* Test Item Value Reference Range Interpretation Comme nts Ferritin [Mass/volume] in Se rum or Plasma (test code = 2276-4) 75 NG/mL 15-150 [facility]esium [Mass/volume] in Serum or Plasma 2021-07-26 00:00:00* Test Item Value Reference Range Interpretation Comme nts Magnesium [Mass/volume] in S kei or Plasma (test code = 28653-0) 1.9 mg/dL 1.6-2.3 [facility]icsTriiodothyronine (T3) Free [Mass/volume] in Serum or [id number] 00:00:00* Test Item Value Reference Range Interpretation Comme nts Triiodothyronine (T3) Free [Mass/volume] in Serum or Plasma (test code = 3051-0) 3.4 pg/mL 2.0-4.4 [facility] Center[facility]yroperoxidase Ab [Units/volume] in Serum or [id number] 00:00:00* Test Item Value Reference Range Interpretation Comme nts Thyroperoxidase Ab [Units/vo lume] in Serum (test code = 8099-4) >600 0-34 H [facility]
[2024-10-03 18:31] VITALS: BMI 47.8
[2024-10-03] MEDS ORDERED: HYDROCODONE/APAP 5/325 MG TAB PO PRN (19:50)
[2024-10-03] MEDS: AUVELITY PO SCH (20:00)
[2024-10-03] MEDS: APIXABAN 2.5 MG TABLET PO SCH (20:00)
[2024-10-03] MEDS ORDERED: VANCOMYCIN 1 GM/VIAL ONE ×2 (20:25)
[2024-10-03] MEDS ORDERED: NA CHLORIDE 0.9% 250 ML ONE ×2 (20:26→20:27)
[2024-10-03] MEDS: VANCOMYCIN 2 GM in NA CHLORIDE 0.9% 500 ML IVPB ONE (21:08)
[2024-10-03] MEDS: VANCOMYCIN 1 GM in NA CHLORIDE 0.9% 250 ML IVPB SCH (22:00)
[2024-10-03 22:10] LABS: Specific Gravity 1.021 (1.005-1.030); Sqamous Epithelial <5 /HPF (None Seen); Urine Bacteria None Seen /HPF (<20); Urine Bilirubin NEGATIVE (Negative); Urine Blood 2+ (Negative); Urine Clarity Extremely Turbid (Clear); Urine Color Yellow (Yellow); Urine Culture Reflex Order NOT NEEDED; Urine Glucose NEGATIVE (Negative); Urine Ketones NEGATIVE (Negative); Urine Micro Reflex YN NO BILL MICROSCOPIC; Urine Mucus Slight /HPF (None Seen); Urine Nitrite NEGATIVE (Negative); Urine Protein TRACE (Negative); Urine Urobilinogen Normal (Normal); Urine WBC <5 /HPF (<5); Urine pH 5.5 (5.0-7.0)
[2024-10-04] MEDS: PIPER TAZO 3.375 GM in NA CHLORIDE 0.9% 100 ML IV SCH (00:10)
[2024-10-04] MEDS: LEVOTHYROXINE SOD 0.025 MG TAB PO SCH ×2 (05:31→05:32)
[2024-10-04] MEDS: PANTOPRAZOLE 40MG TABLET PO SCH (05:32)
[2024-10-04 05:36] LABS: Absolute Basophils 0.1 K/uL (0-0.5); Absolute Eosinophils 0.3 K/uL (0-0.5); Absolute Lymphocytes (CBC) 2.1 K/uL (0.7-4.9); Absolute Monocytes 0.6 K/uL (0.1-1.3); Basophils % 0.8 % (0-1.3); Eosinophils % 3.5 % (0-4.4); Hematocrit 31.4 % (36.0-45.0); Hemoglobin 10.2 g/dL (12.0-15.0); Lymphocytes % 22.8 % (15.3-44.8); MCH 29.4 pg (27.0-35.0); MCHC 32.6 g/dL (32.0-36.0); MCV 90.4 fL (80-100); MPV 6.8 fL (7.6-11.3); Monocytes % 6.8 % (3.3-12.3); Neutrophils % 66.1 % (41.7-73.7); Platelets 383 thou/uL (152-406); RBC Red Blood Cell Count 3.48 M/uL (3.86-4.86); Red Cell Distribution Width 15.9 % (12.1-15.2)
[2024-10-04 06:00] LABS: Anion Gap 9.1 mEq/L (5.0-15.0); Potassium 3.1 mEq/L (3.5-5.1); Prealbumin 12.3 mg/dL (20-40)
--- NOTE | 2024-10-04 07:40 | RAD REPORT ---
EXAMINATION: ONE VIEW CHEST XR CLINICAL INDICATION: cough TECHNIQUE: Frontal chest projection is submitted. Examination is limited by patient positioning and t echnique. COMPARISON: No prior exam. FINDINGS: Mild bilateral pulmonary edema is suspected. The heart is upper limit of normal in size. No displaced fractures identified. IMPRESSION: Mild CHF versus volume overload pattern is suspected.
[2024-10-04] MEDS: FLU (Fluarix Triv) TS24-25(6MOS UP)/PF 45 MCG/0.5 ML Syringe IM ONE (07:45)
[2024-10-04] MEDS: VANCOMYCIN 2 GM in NA CHLORIDE 0.9% 500 ML IVPB SCH (14:26)
[2024-10-04] MEDS: AUVELITY PO SCH (19:57)
[2024-10-04] MEDS: POTASSIUM CL SA 10 MEQ TAB PO ONE (19:57)
[2024-10-04] MEDS: MELATONIN 3 MG TABLET PO PRN (20:33)
[2024-10-04] MEDS: ACETAMINOPHEN 500 MG TAB PO PRN (20:33)
--- NOTE | 2024-10-05 00:08 | HP ---
Date of Admission: 10/03/2024 Time Of Service: 1 p.m. Chief Complaint: "I have leg infections, I need to get stronger." History Of Present Illness: Ms. Mendez is a 54-year-old right-handed patient with bilatera l lower extremity lymphedema, hypothyroidism, CHF, who lives independently with her daughter. Ambula lurdes without an assistive device. Does her own activities of daily living and drives without difficul ty. She did develop some worsening swelling in the lower extremities and pain and was seen at [facility] on 09/28/2024. She was noted to have some warmth to touch and redness along the lymphed anthony in both lower extremities. The ankles noted to be more swollen and there were areas suggestive o f cellulitis in the right lower extremity. She was evaluated, diagnosed with cellulitis and treated with antibiotics. She did receive Ancef. In addition to the cellulitis, chest x-ray showed the left small left pleural effusion with associated pleural thickening and calcification and there was an ad jacent left lower lobe area of abnormality fairing rounded atelectasis. An additional heterogeneous mass or enlargement was noted in the right thyroid lobule and in the anterior neck of the thyroid, wh ich is possibly due to a thyroid lesion arising off the right thyroid lobule or isthmus. A chest x-r ay did reveal cardiomegaly, interstitial pulmonary edema pattern. It should be noted that the week p rior to the patient coming to hospital, she was diagnosed with the flu and fever with leukocytosis. At that time, a Doppler study ruled out deep vein thrombus. She did receive IV Lasix since admission and she is on dual nebulizers for her pleural effusion. She is also treated with incentive spiromet ry. Additional workup identified mild acute renal injury with hypokalemia, hypochloremia, hyponatrem ia, and those were replaced by IV fluids electrolyte replacements. The therapy service was consulted as PT, OT and she was found to be significantly in decline in terms of her ability for transfers hav e largely from pain and swelling and weakness in the right more than left lower extremity, only able to ambulate 10 feet with minimum assistance and moderate assistance for performing some activities of daily living. She had decreased endurance and decreased physical functioning. She was medically cl eared for rehab and was therefore determined to be appropriate candidate for inpatient rehabilitation as if she is to be discharged to a lower level facility such as [facility] or home, she would l ikely worsen. Inpatient therapy will help her return to her prior level of functioning and avoid fur ther hospital readmission. Allergies: NO KNOWN DRUG ALLERGIES. Current Medications: Tylenol 500 mg every 4 hours as needed; Eliquis 2.5 mg twice daily; [place] 5/325 every 4 hours as needed; Synthroid is 0.0375 daily; melatonin 3 mg at bedtime; Protonix 40 mg daily; piperacillin and tazobactam 3.375 mg in 25 mL an hour, total of 100 mL for every 8 hours; also ishaan nuing vancomycin for cellulitis 2 g IV and 500 mL at 250 mL/hour every 18 hours. Laboratory Studies: White blood cell count 9.0, hemoglobin 10.2, platelets 383. Sodium 136, potassi um 3.1, chloride 95, carbon dioxide 35, BUN 13, creatinine 0.69, glucose 116. Hemoglobin A1c 5.8, ca lcium 9.1, magnesium 2.0, albumin 2.0, prealbumin 12.3. Urinalysis shows extreme turbidity, 2+ blood , 5-10 red blood cells, trace total protein, otherwise unremarkable. A chest x-ray that was done at 5 this morning showed mild CHF versus volume overload pattern being suspected. Family History: Noncontributory. Social History: The patient lives in a single-story home and daughter present. She does not smoke t obacco or cigarettes or drink alcohol. Review of Systems: She has mild pain when lying in bed around 2 and pain goes about 7-8 when mobilizing and transferring . Pain medications have been adjusted. Of course, there is swelling in both lower extremities from the lymphedema. There is more pain on the right than left where 2 areas of skin breakdown are noted, which she is on multiple antibiotics for the cellulitis. Wound Care is being consulted. Current Level Of Functioning: Currently, Ms. Mendez is requiring mod assist for ambulation with a ro lling walker, eating is independent, grooming supervision, bathing max assist, moderate assistance fo r upper body dressing, maximum assistance for lower body dressing and donning and doffing footwear. Toileting is moderate assistance. Transfer from bed to chair with wheelchair assistance, moderate as sistance. Toilet transfers moderate assistance. Ambulation, again moderate assistance. Walking is 10 feet with a rolling walker. Comprehension, she understands and without difficulty and expression is also complete without difficulty. She has not attempted stairs. Physical Examination: Vital Signs: Blood pressure 123/60, pulse 65, respiratory rate 16, temperature 98, O2 saturation 93% . General: Ms. Mendez is resting in bed. She is in no significant distress. HEENT: She is normocephalic, atraumatic. Sclerae anicteric. Oropharynx pink and moist. Neck: Supple. Chest: Clear. Musculoskeletal: She does have significant edema all the way from the mid thigh down to the feet fro m the lymphedema. She does have good hemostasis at 2 areas of breakdown on the right lateral leg. S he is able to move the feet and then extend the knee due to difficulty. It was limited by significan t lymphedema. Strength is diffusely weak around 4+. Sensation, stocking-glove loss to touch tempera ture. Rehab And Medical Assessment And Plan: Ms. Mendez is a 54-year-old patient, admitted to the rehabili tation unit with impairment category 20, miscellaneous. Impairment group code is 16, debility. Etio logic diagnosis, bilateral lower extremity cellulitis. She has comorbid decreased mobility, decrease d physical functioning, hypothyroidism. As noted, lymphedema. Some mild insomnia. She has pain rel ated to the lymphedema and cellulitis, and she is on multiple antibiotics, piperacillin tazobactam an d vancomycin for the cellulitis. Plan: 1.She will continue with antibiotics as noted. 2.We will continue with Synthroid for hypothyroidism. 3.Melatonin for insomnia. 4.Eliquis 2.5 mg twice daily for DVT prophylaxis. 5.[place] 5/325 every 4 hours along with Tylenol 500 every 4 hours as needed for pain control. Comorbidities That Are Impacting Rehabilitation: The lymphedema is her biggest issue and cellulitis. Of course, she is being treated with antibiotics. Make it uwsvhp-nd-ljuiortcot difficult to transf er and mobilize both the legs, but she is already working hard with therapy to improve her capacity t o do all of those activities including transfers, ambulate household distances, and dress upper and l ower body. Comorbidities are not interrupting her ability to do well. Rehab Specific Plan: Ms. Mendez will have physical and occupational therapy improve her ability to t ransfer from bed to a walker and a wheelchair, to mobilize both with a wheelchair and walker, and if need be and able to using a single prong cane and no assistive devices. She will work with steps, go ing down several steps. Also work with activities of daily living, upper and lower body dressing, an d managing all of her medications. Ms. Mendez has a good understanding of the process [facility], how she will benefit from physical therapy. She will have 24 hours a day, 7 days a week skilled rehabilitation nursing, daily physician evaluation and management, and Social Service evaluation and management for discharge planning, home equipment, followup and continued therapy. If need be, almas tional help from the hospitalist service will be sought. Barriers To Discharge: She, of course, has had the cellulitis ongoing that needs be watched for in t erms of development into possible sepsis. That is not the case, white blood cell count is normal. T hosjackie will be followed carefully. Chest x-ray does not suggest a pneumonia and a possibility is there , the pleural effusion is there. She will have repeat chest x-ray done, incentive spirometry on boar d, and she is already on broad-spectrum antibiotics. Length Of Stay: About 10 to 12 days. Disposition: Home with family and continue therapy via Home Health. Prognosis: Good. Code Status: Full code. Rehab Specific Plan: 1.Become independent in upper and lower body dressing and donning and doffing footwear. 2.Independently mobilize a wheelchair and ambulate with a rolling walker at least 250 feet. 3.Independently go down 10 steps with bilateral handrails. 4.Independently perform all cognitive functioning. 5.Independently take care of all activities of daily living. The above goals were reviewed with Ms. Mendez and she is in agreement. By signing this document, I acknowledge I personally performed a full physical examination on Ms. Perez [facility] no later than 24 hours after her admission to the inpatient rehabilitation facility and determine d that she is able to tolerate the above course of treatment at an intensive level for reasonable per iod of time. A detailed individualized plan of care for her will be completed by hospital day 4 base d on the preadmission screen, history and physical and therapy evaluations. DOUGLAS/LAUREN Voice ID: [id number]
[2024-10-05] MEDS ORDERED: FLUDROCORTISONE 0.1 MG TAB ONE (08:08)
[2024-10-05] MEDS: POTASSIUM CL SA 10 MEQ TAB PO SCH (08:25)
[2024-10-05] MEDS: CRANBERRY FRUIT EXTRACT 425 MG CAPSULE PO SCH (08:26)
--- NOTE | 2024-10-05 19:11 | CON ---
History Of Present Illness: This is a 54-year-old female I was consulted for cellulitis of right low er extremity. Patient has history of lymphedema. She used to see [place] edema clinic [place] Patien t denies any headache, nausea, vomiting, chest pain, abdominal pain, constipation, or diarrhea. Past medical history of hypothyroidism, lymphedema of lower extremity, morbid obesity. The patient is cu rrently on vancomycin and Zosyn. Past Medical History: As per HPI. Social History: Tobacco positive. Alcohol negative. Family History: Noncontributory. Medications: Vancomycin, Zosyn. See MARs for other medications. Allergies: NO KNOWN DRUG ALLERGIES. Review of Systems: A 10-point review was performed. Physical Examination: General: This is a 54-year-old female, lying in bed, not in any acute cardiopulmonary distress. Vital Signs: Temperature 97, pulse 62, respirations 16, blood pressure 111/56. HEENT: Unremarkable. Neck: Supple. Lungs: Basal crackles. Heart: S1, S2. Regular. Abdomen: Soft, nontender. Bowel sounds present. Obese. Extremities: 4+ nonpitting edema, right lower extremity with erythematous changes. Large ulceration noted above the ankle region and the posterior aspect of the leg. Laboratory Data: Shows WBC 9, hemoglobin 10.2, platelets 383. BUN 13, creatinine 0.6. Albumin leve l is 2. Assessment And Plan: A 54-year-old female with right lower extremity cellulitis secondary to lymphed anthony and stasis dermatitis with significant history of tobacco and morbid obesity. The patient has se lisa protein-calorie malnourishment, anemia of chronic disease. Recommend to continue antibiotic for 2 weeks. Currently, on vancomycin and Zosyn. Recommend to switch to discontinue Zosyn and start pa tient on cefepime. Total treatment plan will be 2 weeks. Keep legs elevated. Apply Silvadene to th e right lower extremity wound site. Keep it elevated when not walking. Consider follow up with the Wound Care Clinic. We will follow the patient as needed. Thank you Dr. Medel for consult. NF/MODL Voice ID: [id number] Report ID: [id number]
[2024-10-05] MEDS: SILVER SULFADIAZINE 1% 50 GM TOP SCH (20:00)
[2024-10-05] MEDS: CEFEPIME 1 GM in NA CHLORIDE 0.9% 100 ML IV SCH (20:19)
--- NOTE | 2024-10-05 23:01 | PN ---
Date of Progress Note: 10/05/2024 Time Of Service: 1:45 p.m. Subjective: Ms. Mendez is sitting inside the bed. She is very happy so far with therapy. She is co mpleting IV antibiotics and actually Dr. Stiles was consulted for recommendations on adjusting or rec ommending oral antibiotics if possible to be discharged on and there was a recommendation change wher e she will change from piperacillin to cefepime and Dr. Stiles did add Silvadene for wound care to th e wounds in the right leg and recommended doxycycline and ciprofloxacin on discharge for a total of 1 4 days. Objective: No fevers, chills. Mild myalgias, arthralgias. Mild pain in the right lower extremity. Otherwise, no positives on the systems review. Physical Examination: Vital Signs: Blood pressure 111/56, pulse 62, respiratory rate 16, temperature 97.8, oxygen saturati on 96%. General: Again, Ms. Mendez is sitting on side of the bed. Extremities: Lymphedema cords present. She does have the right lower extremity bandaged well and 2 areas of wound infection have been addressed and as noted above. She has edema in lower extremities as noted. HEENT: She is normocephalic, atraumatic. Sclerae anicteric. Oropharynx pink and moist. Neck: Supple. Laboratory Studies: No new laboratory studies today. Hemoglobin A1c was 5.8. X-ray/imaging: No new x-ray or imaging done today. Medications: Tylenol 500 mg every 4 hours for moderate pain, [place] 5/325 every 4 hours for moderate to severe pain, Eliquis 2.5 mg twice daily for DVT prophylaxis. She is on cefepime 1 g every 12 hour s, also Synthroid 0.0375 mg daily for hypothyroidism, melatonin 3 mg at bedtime for insomnia, Protoni x 40 mg daily for GE reflux, potassium replacement 10 mEq on board, Silvadene applied to the wound on the legs in addition to vancomycin which is 2 g every 18 hours. Progress Made With Physical And Occupational Therapy: With her physical therapy today, she did multi ple qujdfl-cp-pir transfers independently, perform multiple qfh-de-fyudc transfers independently, sta nd-to-pivot transfers also done independently. She did ambulate without an assistive device, 500 fee t 3 times and 1000 feet twice and 750 feet 3 times with standby assistance. She was able to ascend a nd descend 25 steps with bilateral handrails with standby assistance. With occupational therapy, she did have some increased pain in right lower extremity during long periods of standing. Functional t ransfers with assistance. She did toileting with supervision, demonstrated independence with donning and doffing of socks. Assessment: Ms. Mendez is a 54-year-old patient in the rehabilitation unit with bilateral lower extr emity cellulitis. She is on IV antibiotics being adjusted as noted above and will plan to go home on oral antibiotics to continue a 14-day course. She has decreased mobility, decreased physical functi oning, low potassium has been addressed. She has GE reflux also addressed, hypothyroidism addressed, Eliquis for DVT prophylaxis, [place] and Tylenol for pain, melatonin for insomnia. Plan: Again, continue with physical and occupational therapy 3 hours a day, 5 of 7 days, and continu e with comorbid condition medications including the changes in antibiotics as recommended. DOUGLAS/LAUREN Voice ID: [id number] Report ID: [id number]
[2024-10-06] MEDS ORDERED: NA CHLORIDE 0.9% 250 ML ONE (19:37)
[2024-10-07 08:56] LABS: Absolute Basophils 0.1 K/uL (0-0.5); Absolute Eosinophils 0.2 K/uL (0-0.5); Absolute Lymphocytes (CBC) 1.7 K/uL (0.7-4.9); Absolute Monocytes 0.3 K/uL (0.1-1.3); Absolute Neutrophil 5.9 K/uL (1.8-8.0); Eosinophils % 2.1 % (0-4.4); Hematocrit 33.2 % (36.0-45.0); Hemoglobin 11.1 g/dL (12.0-15.0); Lymphocytes % 21.2 % (15.3-44.8); MCHC 33.3 g/dL (32.0-36.0); MCV 90.2 fL (80-100); MPV 6.6 fL (7.6-11.3); Monocytes % 3.7 % (3.3-12.3); Nucleated Red Blood Cells % 0.1 % (0-0); Platelets 460 thou/uL (152-406); RBC Red Blood Cell Count 3.68 M/uL (3.86-4.86); Red Cell Distribution Width 15.5 % (12.1-15.2)
[2024-10-07 09:16] LABS: Albumin 2.4 g/dL (3.4-5.0); Anion Gap 7.5 mEq/L (5.0-15.0); Magnesium 2.3 mg/dL (1.6-2.4); Potassium 4.5 mEq/L (3.5-5.1); Prealbumin 18.8 mg/dL (20-40)
--- NOTE | 2024-10-07 15:44 | PN ---
Subjective: Patient is sitting in easy chair, family by the bedside, not in any acute distress. Kip erating antibiotic without any problems. Objective: Vital Signs: Temperature 97, pulse 64, respirations 16, and blood pressure 129/58. Lungs: Clear to auscultation. Heart: S1 and S2. Regular. Abdomen: Soft, nontender. Bowel sounds present. Extremities: 4+ nonpitting edema wound noted. Laboratory Data: Shows WBC 8.1, hemoglobin 11.1, and platelets 416. Chemistry shows BUN of 13, crea tinine 0.8, and albumin of 2.4. Micro data, negative urine culture. Assessment And Plan: Cellulitis of lower extremity. Moderate protein-calorie malnourishment. Anemi a of chronic disease. Thrombocytosis. Continue supportive care and antibiotic can be switched to or al Cipro and doxycycline for a complete total course of 14 days. NF/MODL Voice ID: [id number] Report ID: [id number]
[2024-10-07] MEDS: CIPROFLOXACIN HCL 500 MG TAB PO SCH (19:30)
[2024-10-07] MEDS: DOXYCYCLINE 100 MG CAP PO SCH (19:31)
[2024-10-07] MEDS ORDERED: CIPROFLOXACIN HCL 500 MG TAB PO SCH (20:00)
--- NOTE | 2024-10-07 23:14 | PN ---
Date of Progress Note: 10/07/2024 Time Of Service: 1:40 p.m. Subjective: Ms. Mendez is sitting in bed. She is very happy with all of her therapy. She knows IV antibiotics now converted to oral antibiotics for her to go home. Dr. Stiles recommended a compilati on of 14 days of antibiotics, including IV and oral, and that has been done. Objective: No significant fevers, chills. Mild pain in the lower extremities, but that is improving from her lymphedema and cellulitis. Physical Examination: Vital Signs: Blood pressure 110/55, pulse 55, respiratory rate 18, temperature 98.1, oxygen saturati on 90%. General: Again, Ms. Mendez is lying comfortably, legs are bandaged. She is in no significant distre ss. HEENT: She is normocephalic, atraumatic. Sclerae anicteric. Oropharynx pink, moist. Neck: Supple. Chest: Clear. Extremities: Again, moderate edema from lymphedema noted and her wounds are dressed appropriately. Laboratory Studies: White blood cell count is 8.1, hemoglobin 11.1, platelets 460. Sodium slightly low to 134, potassium 4.5, chloride 104, carbon dioxide 27, BUN 13, creatinine 0.88, glucose 130. Ca lcium 9.3, magnesium 2.3, albumin 2.4, prealbumin 18.8. Vancomycin trough 18.7. X-ray/imaging: No new x-rays or imaging. Medications: She is on ciprofloxacin 500 mg twice daily. She has Vibramycin 100 mg twice daily, tho se will continue until 10/17/2024 and she has those twice daily, both the medications. She is on Syn throid 0.025 mg daily plus 0.0125 mg daily, Eliquis 2.5 mg twice daily, [place] 5/325 every 4 hours as needed for pain, melatonin 3 mg at bedtime, Protonix 40 mg daily, potassium 10 mEq daily, and Silvade ne applied to her areas of cellulitis twice daily. Progress Made With Physical And Occupational Therapy: With physical therapy today, she completed bed mobility independently. All transfers including toilet transfer done independently. Simulated car transfer done independently. She ambulated 700 feet, walked outside of the hospital and walked in a parking lot, and completed multiple ramp and curb ambulations, did very well. Had mild shortness of breath. With her occupational therapy, independent with all functional mobility; upper and lower bod y dressing; donning/doffing footwear and slippers, all independent. Assessment And Plan: Ms. Mendez is a 54-year-old patient in rehabilitation unit with bilateral lower extremity cellulitis and lymphedema. She is making excellent progress with her physical and occupat ional therapy. Still has mild decreased mobility, decreased physical functioning. being treated with now oral antibiotics to go home. Recommendations made by Dr. Stiles. Hypothyroidism ad dressed. Insomnia addressed. Protonix present. Potassium replacement also on board. Topical treat ment of her wounds also present. She will be discharged and will follow up with outpatient Therapy a nd Wound Care after discharge. DOUGLAS/LAUREN Voice ID: [id number] Report ID: [id number]
--- NOTE | 2024-10-08 14:20 | P.RH.PN ---
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 Goal: Mobility, Transfers, Self Care Vital Signs: Last Vital Signs Temp 97.9 F 10/08/24 08:00 Pulse 60 10/08/24 08:00 Resp 18 10/08/24 08:00 BP 129/59 L 10/08/24 08:00 Pulse Ox 95 10/08/24 08:00 Laboratory: Laboratory Last Values WBC 8.10 thou/uL (4.3-10.9) 10/07/24 08:40 RBC 3.68 M/uL (3.86-4.86) L 10/07/24 08:40 Hgb 11.1 g/dL (12.0-15.0) L 10/07/24 08:40 Hct 33.2 % (36.0-45.0) L 10/07/24 08:40 MCV 90.2 fL (80-100) 10/07/24 08:40 MCH 30.0 pg (27.0-35.0) 10/07/24 08:40 MCHC 33.3 g/dL (32.0-36.0) 10/07/24 08:40 RDW 15.5 % (12.1-15.2) H 10/07/24 08:40 Plt Count 460 thou/uL (152-406) H 10/07/24 08:40 MPV 6.6 fL (7.6-11.3) L 10/07/24 08:40 Neutrophils % 72.0 % (41.7-73.7) 10/07/24 08:40 Lymphocytes % 21.2 % (15.3-44.8) 10/07/24 08:40 Monocytes % 3.7 % (3.3-12.3) 10/07/24 08:40 Eosinophils % 2.1 % (0-4.4) 10/07/24 08:40 Basophils % 1.0 % (0-1.3) 10/07/24 08:40 Absolute Neutrophils 5.9 K/uL (1.8-8.0) 10/07/24 08:40 Absolute Lymphocytes 1.7 K/uL (0.7-4.9) 10/07/24 08:40 Absolute Monocytes 0.3 K/uL (0.1-1.3) 10/07/24 08:40 Absolute Eosinophils 0.2 K/uL (0-0.5) 10/07/24 08:40 Absolute Basophils 0.1 K/uL (0-0.5) 10/07/24 08:40 Sodium 134 mEq/L (136-145) L 10/07/24 08:40 Potassium 4.5 mEq/L (3.5-5.1) 10/07/24 08:40 Chloride 104 mEq/L (98-107) 10/07/24 08:40 Carbon Dioxide 27 mEq/L (21-32) 10/07/24 08:40 Anion Gap 7.5 mEq/L (5.0-15.0) 10/07/24 08:40 BUN 13 mg/dL (7-18) 10/07/24 08:40 Creatinine 0.88 mg/dL (0.55-1.02) 10/07/24 08:40 Est GFR (CKD-EPI) 79 ml/min (=/>90) L 10/07/24 08:40 Glucose 130 mg/dL (74-106) H 10/07/24 08:40 Hemoglobin A1c 5.8 % (4.2-6.3) 10/04/24 04:42 Calcium 9.3 mg/dL (8.5-10.1) 10/07/24 08:40 Magnesium 2.3 mg/dL (1.6-2.4) 10/07/24 08:40 Albumin 2.4 g/dL (3.4-5.0) L 10/07/24 08:40 Prealbumin 18.8 mg/dL (20-40) L 10/07/24 08:40 Urine Color Yellow (Yellow) 10/03/24 20:45 Urine Clarity Extremely turbid (Clear) H 10/03/24 20:45 Urine pH 5.5 (5.0-7.0) 10/03/24 20:45 Ur Specific [place] 1.021 (1.005-1.030) 10/03/24 20:45 Glucose (UA)(Auto) Negative (Negative) 10/03/24 20:45 Urine Ketones Negative (Negative) 10/03/24 20:45 Urine Blood 2+ (Negative) H 10/03/24 20:45 Urine Nitrite Negative (Negative) 10/03/24 20:45 Urine Bilirubin Negative (Negative) 10/03/24 20:45 Urine Urobilinogen Normal (Normal) 10/03/24 20:45 Ur Leukocyte Esterase Negative Laura/uL (Negative) 10/03/24 20:45 Urine RBC 5-10 /HPF (None Seen) H 10/03/24 20:45 Urine WBC <5 /HPF (<5) 10/03/24 20:45 Ur Squamous Epith Cells <5 /HPF (None Seen) 10/03/24 20:45 U Non-Squamous Epi Cells <5 /HPF (None Seen) 10/03/24 20:45 Urine Bacteria None seen /HPF (<20) 10/03/24 20:45 Hyaline Casts 0-5 /LPF (None Seen) 10/03/24 20:45 Urine Mucus Slight /HPF (None Seen) 10/03/24 20:45 Urine Culture Reflexed Not needed 10/03/24 20:45 Urine Total Protein Trace (Negative) H 10/03/24 20:45 Vancomycin Trough 18.7 mcg/mL (5.0-20.0) 10/07/24 13:00 Weight: 270 lb Wound Present: No Negative Pressure Wound Therapy Present: No Physician Update: BIMS 15. She is on oral antibiotics. Met all PT goals. Walked 0.7 miles. She did her laundry. Independent with all ADLs. 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 Please see the Rehabilitation Signature page for all necessary signatures.
[2024-10-09 06:42] VITALS: BP 123/59; TEMP 97.2
== END 2024-10-09 10:20 | disposition home or self-care (01) | DRG 947 ==
LOC: 5TH 18:10
PROVIDERS: ADMIT Psychiatry & Neurology Neurology with Special Qualifications in Child Neurology; ATTEND Psychiatry & Neurology Neurology with Special Qualifications in Child Neurology
DX: R53.81 Other malaise (principal); E43 Unspecified severe protein-calorie malnutrition; L03.116 Cellulitis of left lower limb; L03.115 Cellulitis of right lower limb; N17.9 Acute kidney failure, unspecified; E87.1 Hypo-osmolality and hyponatremia; Z68.42 Body mass index [BMI] 45.0-49.9, adult; E03.9 Hypothyroidism, unspecified; I89.0 Lymphedema, not elsewhere classified; D75.839 Thrombocytosis, unspecified; E87.6 Hypokalemia; G47.00 Insomnia, unspecified; E87.8 Other disorders of electrolyte and fluid balance, not elsewhere classified; I87.2 Venous insufficiency (chronic) (peripheral); E66.01 Morbid (severe) obesity due to excess calories; D63.8 Anemia in other chronic diseases classified elsewhere; K21.9 Gastro-esophageal reflux disease without esophagitis
CPT/HCPCS: 36415; 71045; 80048; 80202; 81001; 82040; 83036; 83735; 84132; 84134; 85025; 87086; 87088; 97110; 97112; 97116; 97163; 97165; 97530; J0692; J2543; J7040; J7050

== ENCOUNTER 2024-11-26 11:46 | Inpatient (IN) | payer BC ==
--- OUTSIDE RECORDS SUMMARY | 2024-11-26 11:50 | XMS REPORT | Continuity of Care Document ---
Author Name Unknown Address [address] [facility] [address] [place] [address] [facility] Address [address] [facility] [address] [place] [address] Care Team Providers Care Wire Straightener Name Role Phone BRITT PETTIT Attending Clinician Unavailable BERLIN POSADAS Attending Clinician Unavail able SHERINE JAMA Attending Clinician Unavailable TANYA_Susan Attending Clinician Unavailable ALICIA_GCJessieZW_Kadiderricka_S Attending Clinician Unavaila david Nicholson Attending Clinician Unavailable Lilly Martínez Attending Clinician [phone] Ravi Lo Attending Clinician [phone] JUAN CARLOS Attending Clinician Unavailable CONNIE Attending Clinician Unavailable Germania Calix Attending Clinician [phone] Rachid Attending Clinician Unavailable GERMANIA CALIX Attending Clinician Unavaila BRITT Mckinnon Admitting Clinician Unavailable SISYASSINE_Susan Admitting Clinician Unavailable ALICIA_SAYW_Devi_S Admitting Clinician Unavaila david Nicholson Admitting Clinician Unavailable WATERS_Kirstie Admitting Clinician Unavailable CONNIE Admitting Clinician Unavailable Rachid Admitting Clinician Unavailable Payers Payer Name Policy Type Policy Number Effective Date Expirati on Date Source [place] [id number] 2023 00:[place] [id number] 2018 00:00:[place] [id number] 2019 00:00:00 Problems Condition Name Condition Details Condition Category Status Onset Date Resolution Date Last Treatment Date Treating Clinician Comments Source Disorder of thyroid gland Disorder of Thyroid Gland Problem Active 6 00:00: 00 [facility] Hypertrigl yceridemia Hypertrigl yceridemia Problem Active 2020-10 0 00:00: 00 [facility] Depressive disorder Depressive Disorder Problem Active 12-19 00:00: 00 [facility] Body mass index 40+ - severely obese Body Mass Index 40+ - Severely Obese Problem Active 12-19 00:00: 00 [facility] Essential hypertensi on Essential Hypertensi on Problem Active 04-12 00:00: 00 [facility] Obstructiv e sleep apnea of adult Obstructiv e Sleep Apnea of Adult Problem Active 06-08 00:00: 00 [facility] Hypothyroi dism Hypothyroi dism Problem Active 05-20 00:00: 00 [facility] Vitamin D deficiency Vitamin D Deficiency Problem Active 05-20 00:00: 00 [facility] Anxiety Anxiety Problem Active 05-20 00:00: 00 [facility] Tobacco user Tobacco User Problem Active 12-09 00:00: 00 [facility] Non-rheuma tic mitral regurgitat ion Non-rheuma tic Mitral Regurgitat ion Problem Active 12-09 00:00: 00 [facility] Mitral valve prolapse Mitral Valve Prolapse Problem Active 12-09 00:00: 00 [facility] Lymphedema of lower extremity Lymphedema of Lower Extremity Problem Active 12-09 00:00: 00 [facility] Edema of lower extremity Edema of Lower Extremity Problem Active 12-09 00:00: 00 [facility] Dyspnea on exertion Dyspnea on Exertion Problem Active 12-09 00:00: 00 [facility] Hypertensi ve disorder [...] Stop Date Source Current Every Day Smoker [facility] Light Tobacco Smoker [facility] Medications Ordered Medication Name Filled Medication Name [...] a day by oral route as needed. [facility] hydrochloro thiazide 25 mg tablet TAKE 1 TABLET BY MOUTH EVERY DAY hydrochloro thiazide 25 mg tablet TAKE 1 TABLET BY MOUTH EVERY DAY No hydrochlor othiazide 25 mg tablet TAKE 1 TABLET BY MOUTH EVERY DAY [facility] omeprazole 40 mg capsule,del ayed release TAKE 1 CAPSULE BY MOUTH EVERY DAY omeprazole 40 mg capsule,del ayed release TAKE 1 CAPSULE BY MOUTH EVERY DAY No omeprazole 40 mg capsule,de layed release TAKE 1 CAPSULE BY MOUTH EVERY DAY [facility] sertraline 50 mg tablet TAKE 1 TABLET BY MOUTH EVERY DAY FOR 30 DAYS sertraline 50 mg tablet TAKE 1 TABLET BY MOUTH EVERY DAY FOR 30 DAYS No sertraline 50 mg tablet TAKE 1 TABLET BY MOUTH EVERY DAY FOR 30 DAYS [facility] Sutab 1.479-0.188 -0.225 gram tablet Take 12 tablets twice a day by oral route for 1 day. Sutab 1.479-0.188 -0.225 gram tablet Take 12 tablets twice a day by oral route for 1 day. No 12 BID Sutab 1.479-0.18 8-0.225 gram tablet Take 12 tablets twice a day by oral route for 1 day. [facility] candesartan 4 mg tablet TAKE 1 TABLET BY MOUTH EVERY DAY candesartan 4 mg tablet TAKE 1 TABLET BY MOUTH EVERY DAY No 1 Q1D candesarta n 4 mg tablet TAKE 1 TABLET BY MOUTH EVERY DAY [facility] fenofibrate micronized 67 mg capsule TAKE 1 CAPSULE BY MOUTH EVERYDAY AT BEDTIME fenofibrate micronized 67 mg capsule TAKE 1 CAPSULE BY MOUTH EVERYDAY AT BEDTIME No 1capsul e(s) Q1D fenofibrat e micronized 67 mg capsule TAKE 1 CAPSULE BY MOUTH EVERYDAY AT BEDTIME [facility] levothyroxi ne 75 mcg tablet TAKE 1 TABLET BY MOUTH EVERY DAY levothyroxi ne 75 mcg tablet TAKE 1 TABLET BY MOUTH EVERY DAY No 1 Q1D levothyrox ine 75 mcg tablet TAKE 1 TABLET BY MOUTH EVERY DAY [facility] Auvelity 45 mg-105 mg tablet, extended release Take 1 tablet twice a day by oral route for 90 days. Auvelity 45 mg-105 mg tablet, extended release Take 1 tablet twice a day by oral route for 90 days. No 1 BID Auvelity 45 mg-105 mg tablet, extended release Take 1 tablet twice a day by oral route for 90 days. [facility] cholecalcif khris (vitamin D3) 1,250 mcg (50,000 [...] 42 DAYS, FOR LOW VITAMIN D LEVEL. [facility] levothyroxi ne 25 mcg tablet TAKE 1 [...] MEALS FOR 42 DAYS, FOR THYROID FUNCTION. [facility] omeprazole 40 mg capsule,del ayed release TAKE 1 CAPSULE BY MOUTH EVERY DAY omeprazole 40 mg capsule,del ayed release TAKE 1 CAPSULE BY MOUTH EVERY DAY No omeprazole 40 mg capsule,de layed release TAKE 1 CAPSULE BY MOUTH EVERY DAY [facility] Immunizations Ordered Immunization Name Filled Immunization Name Date Status Comments Source COVID-19 (SARS-COV-2) vaccine, unspecified COVID-19 (SARS-COV-2) vaccine, unspecified Unknown Completed [facility] Vital Signs Vital Name Observation Time Observation Value Comments S ource Body Weight 2024-07-09 00:00:00 4229 [oz_av] [facility] Height 2024-07-09 00:00:00 63 [in_i] [facility] BMI (Body Mass Index) 2024-07-09 00:00:00 46.8 kg/m2 [facility] BP Systolic 2024-05-26 00:00:00 132 mm[Hg] [facility] BMI (Body Mass Index) 2024-05-26 00:00:00 48 kg/m2 [facility] BP Diastolic 2024-05-26 00:00:00 86 mm[Hg] [facility] Body Weight 2024-05-26 00:00:00 4336 [oz_av] [facility] Height 2024-05-26 00:00:00 63 [in_i] Pending sale to [facility] BP Systolic 2024-03-24 00:00:00 148 mm[Hg] [facility] Height 2024-03-24 00:00:00 63 [in_i] [facility] Body Weight 2024-03-24 00:00:00 4480 [oz_av] [facility] BMI (Body Mass Index) 2024-03-24 00:00:00 49.6 kg/m2 [facility] BP Diastolic 2024-03-24 00:00:00 76 mm[Hg] [facility] Body Weight 2023-12-02 00:00:00 4545.6 [oz_av] [facility] Height 2023-12-02 00:00:00 63 [in_i] Pending sale to [facility] BMI (Body Mass Index) 2023-12-02 00:00:00 50.3 kg/m2 [facility] BP Systolic 2023-12-02 00:00:00 152 mm[Hg] [facility] BP Diastolic 2023-12-02 00:00:00 78 mm[Hg] [facility] BP Systolic 2023-11-20 00:00:00 170 mm[Hg] [facility] BP Diastolic 2023-11-20 00:00:00 84 mm[Hg] [facility] Body Weight 2023-11-20 00:00:00 4554 [oz_av] [facility] Height 2023-11-20 00:00:00 63 [in_i] Pending sale to [facility] BMI (Body Mass Index) 2023-11-20 00:00:00 50.4 kg/m2 [facility] Height 2023-06-26 00:00:00 63 [in_i] Pending [facility] to [facility] Body Weight 2023-06-26 00:00:00 4373 [oz_av] [facility] BP Systolic 2023-06-26 00:00:00 140 mm[Hg] [facility] BP Diastolic 2023-06-26 00:00:00 73 mm[Hg] [facility] BMI (Body Mass Index) 2023-06-26 00:00:00 48.4 kg/m2 [facility] BP Diastolic 2023-04-09 00:00:00 77 mm[Hg] [facility] Height 2023-04-09 00:00:00 63 [in_i] Pending sale to [facility] BMI (Body Mass Index) 2023-04-09 00:00:00 48 kg/m2 [facility] BP Systolic 2023-04-09 00:00:00 147 mm[Hg] [facility] Body Weight 2023-04-09 00:00:00 4336 [oz_av] [facility] BP Diastolic 2023-03-31 00:00:00 79 mm[Hg] [facility] Height 2023-03-31 00:00:00 63 [in_i] [place] [facility] BMI (Body Mass Index) 2023-03-31 00:00:00 48.6 kg/m2 [facility] BP Systolic 2023-03-31 00:00:00 145 mm[Hg] Jeremiah malave [facility] Body Weight 2023-03-31 00:00:00 274.4 [lb_av] [place] [facility] BP Diastolic 2023-03-26 00:00:00 84 mm[Hg] [facility] Height 2023-03-26 00:00:00 63 [in_i] Pending [facility] BMI (Body Mass Index) 2023-03-26 00:00:00 49.1 kg/m2 [facility] BP Systolic 2023-03-26 00:00:00 161 mm[Hg] [facility] Body Weight 2023-03-26 00:00:00 4432 [oz_av] [facility] BP Diastolic 2023-01-22 00:00:00 75 mm[Hg] [facility] Height 2023-01-22 00:00:00 63 [in_i] Pending [facility] BMI (Body Mass Index) 2023-01-22 00:00:00 51.2 kg/m2 [facility] BP Systolic 2023-01-22 00:00:00 158 mm[Hg] [facility] Body Weight 2023-01-22 00:00:00 4624 [oz_av] [facility] BP Diastolic 2022-05-14 00:00:00 76 mm[Hg] [facility] Height 2022-05-14 00:00:00 63 [in_i] Pending sale to [facility] BMI (Body Mass Index) 2022-05-14 00:00:00 49.2 kg/m2 [facility] BP Systolic 2022-05-14 00:00:00 166 mm[Hg] [facility] Body Weight 2022-05-14 00:00:00 4448 [oz_av] [facility] BP Diastolic 2022-05-08 00:00:00 87 mm[Hg] [facility] Height 2022-05-08 00:00:00 63 [in_i] Pending sale to [facility] BMI (Body Mass Index) 2022-05-08 00:00:00 48.9 kg/m2 [facility] BP Systolic 2022-05-08 00:00:00 153 mm[Hg] [facility] Body Weight 2022-05-08 00:00:00 4416 [oz_av] [facility] BP Diastolic 2022-04-29 00:00:00 68 mm[Hg] [facility] Height 2022-04-29 00:00:00 63 [in_i] Pending sale to [facility] BMI (Body Mass Index) 2022-04-29 00:00:00 48.5 kg/m2 [facility] BP Systolic 2022-04-29 00:00:00 144 mm[Hg] [facility] Body Weight 2022-04-29 00:00:00 4384 [oz_av] [facility] BP Diastolic 2022-01-25 00:00:00 59 mm[Hg] [facility] Height 2022-01-25 00:00:00 63 [in_i] Pending sale to [facility] BMI (Body Mass Index) 2022-01-25 00:00:00 48.7 kg/m2 [facility] BP Systolic 2022-01-25 00:00:00 152 mm[Hg] [facility] Body Weight 2022-01-25 00:00:00 4400 [oz_av] [facility] BP Diastolic 2022-01-17 00:00:00 73 mm[Hg] [facility] Height 2022-01-17 00:00:00 63 [in_i] Pending sale to [facility] BMI (Body Mass Index) 2022-01-17 00:00:00 49.1 kg/m2 [facility] BP Systolic 2022-01-17 00:00:00 157 mm[Hg] [facility] Body Weight 2022-01-17 00:00:00 4432 [oz_av] [facility] BP Diastolic 2022-01-08 00:00:00 67 mm[Hg] [facility] Height 2022-01-08 00:00:00 63 [in_i] Pending sale to [facility] BMI (Body Mass Index) 2022-01-08 00:00:00 49.1 kg/m2 [facility] BP Systolic 2022-01-08 00:00:00 144 mm[Hg] [facility] Body Weight 2022-01-08 00:00:00 4432 [oz_av] [facility] BP Diastolic 2021-12-21 00:00:00 64 mm[Hg] [facility] Height 2021-12-21 00:00:00 63 [in_i] Pending sale [facility] BMI (Body Mass Index) 2021-12-21 00:00:00 31.2 kg/m2 [facility] BP Systolic 2021-12-21 00:00:00 164 mm[Hg] [facility] Body Weight 2021-12-21 00:00:00 2816 [oz_av] [facility] BP Diastolic 2021-12-14 00:00:00 61 mm[Hg] [facility] Height 2021-12-14 00:00:00 63 [in_i] Pending sale to [facility] BMI (Body Mass Index) 2021-12-14 00:00:00 47.7 kg/m2 [facility] BP Systolic 2021-12-14 00:00:00 138 mm[Hg] [facility] Body Weight 2021-12-14 00:00:00 4304 [oz_av] [facility] BP Diastolic 2021-12-07 00:00:00 75 mm[Hg] [facility] Height 2021-12-07 00:00:00 63 [in_i] Pending sale to [facility] BMI (Body Mass Index) 2021-12-07 00:00:00 48.2 kg/m2 [facility] BP Systolic 2021-12-07 00:00:00 152 mm[Hg] [facility] Body Weight 2021-12-07 00:00:00 4352 [oz_av] [facility] BP Diastolic 2021-11-30 00:00:00 70 mm[Hg] [facility] Height 2021-11-30 00:00:00 63 [in_i] Pending sale to [facility] BMI (Body Mass Index) 2021-11-30 00:00:00 48 kg/m2 [facility] BP Systolic 2021-11-30 00:00:00 113 mm[Hg] [facility] Body Weight 2021-11-30 00:00:00 4338.4 [oz_av] [facility] BP Diastolic 2021-11-22 00:00:00 80 mm[Hg] [facility] Height 2021-11-22 00:00:00 63 [in_i] Pending sale to [facility] BMI (Body Mass Index) 2021-11-22 00:00:00 47.7 kg/m2 [facility] BP Systolic 2021-11-22 00:00:00 134 mm[Hg] [facility] Body Weight 2021-11-22 00:00:00 4309 [oz_av] [facility] BP Diastolic 2021-11-14 00:00:00 74 mm[Hg] [facility] Height 2021-11-14 00:00:00 63 [in_i] Pending sale to [facility] BMI (Body Mass Index) 2021-11-14 00:00:00 48.3 kg/m2 [facility] BP Systolic 2021-11-14 00:00:00 148 mm[Hg] [facility] Body Weight 2021-11-14 00:00:00 4362 [oz_av] [facility] BP Diastolic 2021-11-02 00:00:00 68 mm[Hg] [facility] Height 2021-11-02 00:00:00 63 [in_i] Pending sale to [facility] BMI (Body Mass Index) 2021-11-02 00:00:00 48.8 kg/m2 [facility] BP Systolic 2021-11-02 00:00:00 148 mm[Hg] [facility] Body Weight 2021-11-02 00:00:00 4410 [oz_av] [facility] BP Diastolic 2021-10-25 00:00:00 73 mm[Hg] [facility] Height 2021-10-25 00:00:00 63 [in_i] Pending sale to [facility] BMI (Body Mass Index) 2021-10-25 00:00:00 49.2 kg/m2 [facility] BP Systolic 2021-10-25 00:00:00 145 mm[Hg] [facility] Body Weight 2021-10-25 00:00:00 4448 [oz_av] [facility] BP Diastolic 2021-08-15 00:00:00 70 mm[Hg] [facility] Height 2021-08-15 00:00:00 63 [in_i] Pending sale to [facility] BMI (Body Mass Index) 2021-08-15 00:00:00 50.6 kg/m2 [facility] BP Systolic 2021-08-15 00:00:00 133 mm[Hg] [facility] Body Weight 2021-08-15 00:00:00 4569.6 [oz_av] [facility] BP Diastolic 2021-08-02 00:00:00 66 mm[Hg] [facility] Height 2021-08-02 00:00:00 63 [in_i] Pending sale to [facility] BMI (Body Mass Index) 2021-08-02 00:00:00 50.7 kg/m2 [facility] BP Systolic 2021-08-02 00:00:00 138 mm[Hg] [facility] Body Weight 2021-08-02 00:00:00 4576 [oz_av] [facility] BP Diastolic 2021-07-18 00:00:00 85 mm[Hg] [facility] Height 2021-07-18 00:00:00 63 [in_i] Pending sale to [facility] BMI (Body Mass Index) 2021-07-18 00:00:00 50.8 kg/m2 [facility] BP Systolic 2021-07-18 00:00:00 154 mm[Hg] [facility] Body Weight 2021-07-18 00:00:00 4588.8 [oz_av] [facility] BP Diastolic 2021-04-17 00:00:00 69 mm[Hg] [facility] Height 2021-04-17 00:00:00 63 [in_i] [facility] BMI (Body Mass Index) 2021-04-17 00:00:00 49.1 kg/m2 [facility] BP Systolic 2021-04-17 00:00:00 143 mm[Hg] [facility] Body Weight 2021-04-17 00:00:00 4438.4 [oz_av] [facility] BP Diastolic 2020-12-19 00:00:00 69 mm[Hg] [facility] Height 2020-12-19 00:00:00 63 [in_i] Pending sale to [facility] BMI (Body Mass Index) 2020-12-19 00:00:00 48.9 kg/m2 [facility] BP Systolic 2020-12-19 00:00:00 145 mm[Hg] [facility] Body Weight 2020-12-19 00:00:00 4416 [oz_av] [facility] Procedures Procedure Date / Time Performed Performing Clinicia n Source XR, chest, 2 view 2023-11-20 00:00:00 [facility] US, abdomen, complete 2023-03-31 00:00:00 [place] [facility] US, thyroid 2021-08-02 00:00:00 [facility] US, abdomen + pelvis 2021-04-17 00:00:00 [facility] electrocardiogram 2020-12-19 00:00:00 [facility] XR, chest, 2 view 2020-12-19 00:00:00 [facility] Plan of Care Planned Activity Planned Date Details Comments Source Diagnostic Test Pending 2023-03-31 00:00:00 Hepatitis C IgG Ab, qual, serum [code = Hepatitis C IgG Ab, qual, serum] [facility] Encounters Start Date/Time End Date/Time Encounter Type Admission Type Attending [facility] Facility Care Department Encounter ID Source 2024-09-28 03:19:00 Inpatient ER BRITT PETTIT [facility] [id number] [facility] 2023-04-14 13:30:00 Inpatient BERLIN BACH [facility] [id number] [facility] 2024-09-29 11:10:00 2024-10-03 16:40:00 Inpatient ER BRITT PETTIT [facility] [id number] [facility] 2024-09-27 21:48:00 2024-09-27 21:48:00 Emergency ER SHERINE JAMA [facility] [id number] [facility] 2024-07-09 00:00:00 2024-07-09 00:00:00 FELIZ Saul, NATIONAL EXPANSION RECRUITER, ELEVATED GUARD-C: [address], [place] [address] , Ph. [facility], FELIZ Saul, ELEVATED GUARD-C [id number] [facility] 2024-05-26 00:00:00 2024-05-26 00:00:00 CANDIDA SoaresP-C: [address], [place] [address] , Ph. [phone] [facility], CANDIDA SOARESP-C [id number] [facility] 2024-04-05 12:19:48 2024-04-05 12:19:58 Outpatient Elective MHEOUT MHEOUT [id number] [facility] 2024-03-24 00:00:00 2024-03-24 00:00:00 Dory Cain, [facility]-C: [address], [place] [address] , Ph. [facility], [facility], [facility] [id number] [facility] 2023-12-02 00:00:00 2023-12-02 00:00:00 Lilly Martínez, MSN, NATIONAL EXPANSION RECRUITER, ELEVATED GUARD-C: [address], [place] [address] , Ph. [facility], Lilly Martínez, MSN, ELEVATED GUARD-C [id number] [facility] 2023-11-20 00:00:00 2023-11-20 00:00:00 Outpatient SISSON_C [facility] [id number] [facility] 2023-11-20 00:00:00 2023-11-20 00:00:00 Lilly Martínez, MSN, NATIONAL EXPANSION RECRUITER, ELEVATED GUARD-C: [address], [place] [address] , Ph. [facility], Lilly Martínez, MSN, ELEVATED GUARD-C [id number] [facility] 2023-11-12 00:00:00 2023-11-12 00:00:00 Outpatient SISSON_C [facility] [id number] [facility] 2023-08-01 00:00:00 2023-08-01 00:00:00 Outpatient GC_GCBZW_Ka diyala_S [facility] [id number] [facility] 2023-07-31 00:00:2023-07-31 00:00:00 Outpatient SISSON_C [facility] [id number] [facility] 2023-06-26 00:00:00 2023-06-26 00:00:00 Lilly Martínez, MSN, NATIONAL EXPANSION RECRUITER, ELEVATED GUARD-C: [address], [place] [address] , Ph. [facility], Lilly Martínez, MSN, ELEVATED GUARD-C [id number] [facility] 2023-06-06 00:00:00 2023-06-06 00:00:00 Outpatient SISSON_C [facility] [id number] [facility] 2023-05-07 00:00:00 2023-05-07 00:00:00 Outpatient SISSON_C [facility] [id number] [facility] 2023-05-07 00:00:00 2023-05-07 00:00:00 FELIZ Saul, NATIONAL EXPANSION RECRUITER, ELEVATED GUARD-C: [address], [place] [address] , Ph. [facility], Lilly Martínez, FELIZ, ELEVATED GUARD-C [id number] [facility] 2023-04-09 00:00:00 2023-04-09 00:00:00 Outpatient SISSON_C [facility] [id number] [facility] 2023-04-09 00:00:00 2023-04-09 00:00:00 Outpatient SISSON_C [facility] [id number] [facility] 2023-04-09 00:00:00 2023-04-09 00:00:00 FELIZ Saul, NATIONAL EXPANSION RECRUITER, ELEVATED GUARD-C: [address], [place] [address] , Ph. [facility], Lilly Martínez, MSN, ELEVATED GUARD-C [id number] [facility] 2023-04-01 00:00:00 2023-04-01 00:00:00 Outpatient Ferguson_Ro bin [facility] [id number] [facility] 2023-03-31 00:00:00 2023-03-31 00:00:00 Outpatient Ferguson_Ro bin [facility] [id number] [place] [facility] 2023-03-31 00:00:00 2023-03-31 00:00:00 Berlin Posadas MD: [address], [address], [place] [address] , Ph. [facility] [id number] [facility] 2023-03-26 00:00:00 2023-03-26 00:00:00 FELIZ Saul, NATIONAL EXPANSION RECRUITER, ELEVATED GUARD-C: Emma [address], [address], [place] [address] , Ph. [facility], Lilly Martínez, MSN, ELEVATED GUARD-C [id number] [facility] 2023-03-11 00:00:00 2023-03-11 00:00:00 Outpatient Ferguson_Ro bin [facility] [id number] [facility] 2023-02-19 00:00:00 2023-02-19 00:00:00 Outpatient SISSON_C [facility] [id number] [facility] 2023-01-22 00:00:00 2023-01-22 00:00:00 Outpatient [facility]ISSON_C [facility] [id number] [facility] 2023-01-22 00:00:00 2023-01-22 00:00:00 Lilly Martínez, MSN, NATIONAL EXPANSION RECRUITER, ELEVATED GUARD-C: [address], [address], [place] [address] , Ph. [facility], Lilly Martínez, MSN, ELEVATED GUARD-C [id number] [facility] 2022-05-14 00:00:00 2022-05-14 00:00:00 Outpatient SISSON_C [facility] [id number] [facility] 2022-05-14 00:00:00 2022-05-14 00:00:00 Outpatient Lilly Martínez [facility] [id number] 2022-05-14 00:00:00 2022-05-14 00:00:00 FELIZ Saul, NATIONAL EXPANSION RECRUITER, ELEVATED GUARD-C: [address], [address], [place] [address] , Ph. [facility], Lilly Martínez, FELIZ, ELEVATED GUARD-C [id number] [facility] 2022-05-10 00:00:00 2022-05-10 00:00:00 Outpatient SISSON_C [facility] [id number] [facility] 2022-05-10 00:00:00 2022-05-10 00:00:00 Outpatient Lilly Martínez [facility] [id number] 2022-05-10 00:00:00 2022-05-10 00:00:00 FELIZ Saul, NATIONAL EXPANSION RECRUITER, ELEVATED GUARD-C: [address], [address], [place] [address] , Ph. [facility], Lilly Martínez, MSN, ELEVATED GUARD-C [id number] [facility] 2022-05-09 00:00:00 2022-05-09 00:00:00 Outpatient SISSON_C [facility] [id number] [facility] 2022-05-09 00:00:00 2022-05-09 00:00:00 Outpatient Lilly Martínez [facility] [id number] 2022-05-09 00:00:00 2022-05-09 00:00:00 Lilly Martínez, MSN, NATIONAL EXPANSION RECRUITER, ELEVATED GUARD-C: Emma Ruiz [facility] [address], [address], [place] [address] , Ph. [facility], Lilly Martínez, MSN, ELEVATED GUARD-C [id number] [facility] 2022-05-08 00:00:00 2022-05-08 00:00:00 Outpatient SISSON_C [facility] [id number] [facility] 2022-05-08 00:00:00 2022-05-08 00:00:00 Outpatient Lilly Martínez [facility] [id number] 2022-05-08 00:00:00 2022-05-08 00:00:00 Lilly Martínez, MSN, NATIONAL EXPANSION RECRUITER, ELEVATED GUARD-C: Emma Ruiz [facility] E, [address], [place] [address] , Ph. [facility], Lilly Martínez, MSN, ELEVATED GUARD-C [id number] [facility] 2022-04-29 04:38:00 2022-04-29 04:38:00 Outpatient SISSON_C [facility] [id number] [facility] 2022-04-29 00:00:00 2022-04-29 00:00:00 Outpatient Ravi Lo [facility] [id number] 2022-04-29 00:00:00 2022-04-29 00:00:00 Ravi Lo, DO: [address], [place] [address] , Ph. [facility], DR. LO [id number] [facility] 2022-04-03 04:29:00 2022-04-03 04:29:00 Outpatient SISSON_C [facility] [id number] [facility] 2022-04-03 00:00:00 2022-04-03 00:00:00 FELIZ Saul, NATIONAL EXPANSION RECRUITER, ELEVATED GUARD-C: [address], [address], [place] [address] , Ph. [facility], FELIZ Saul, ELEVATED GUARD-C [id number] [facility] 2022-04-03 00:00:00 2022-04-03 00:00:00 Outpatient Lilly Martínez [facility] [id number] 2022-03-01 11:44:00 2022-03-01 11:44:00 Outpatient SISSON_C [facility] [id number] [facility] 2022-03-01 00:00:00 2022-03-01 00:00:00 Lilly Martínez, MSN, NATIONAL EXPANSION RECRUITER, ELEVATED GUARD-C: Emma Ru[address], [address], [place] [address] , Ph. [facility], Lilly Martínez MSN, ELEVATED GUARD-C [id number] [facility] 2022-03-01 00:00:00 2022-03-01 00:00:00 Outpatient Lilly Martínez [facility] [id number] [id number] 05:20:00 2022-02-04 05:20:00 Outpatient SISSON_C [facility] [id number] [facility] 2022-01-25 03:04:00 2022-01-25 03:04:00 Outpatient SISSON_C [facility] [id number] [facility] 2022-01-25 00:00:00 2022-01-25 00:00:00 FELIZ aSul, NATIONAL EXPANSION RECRUITER, ELEVATED GUARD-C: [address], [address], [place] [address] , Ph. [facility], FELIZ Saul, ELEVATED GUARD-C [id number] [facility] 2022-01-25 00:00:00 2022-01-25 00:00:00 Outpatient Lilly Martínez [facility] [id number] 2022-01-17 05:46:00 2022-01-17 05:46:00 Outpatient TANYA_Susan [facility] [id number] [facility] 2022-01-17 00:00:00 2022-01-17 00:00:00 Lilly Martínez MSN, NATIONAL EXPANSION RECRUITER, ELEVATED GUARD-C: [address], [address], [place] [address] , Ph. [facility], Lilly Martínez, MSN, ELEVATED GUARD-C [id number] [facility] 2022-01-08 11:44:00 2022-01-08 11:44:00 Outpatient SISSON_C [facility] [id number] [facility] 2022-01-08 00:00:00 2022-01-08 00:00:00 Lilly Martínez, MSN, NATIONAL EXPANSION RECRUITER, ELEVATED GUARD-C: [address], [address], [place] [address] , Ph. [facility], Lilly Martínez, MSN, ELEVATED GUARD-C [id number] [facility] 2022-01-08 00:00:00 2022-01-08 00:00:00 Outpatient Lilly Martínez [facility] [id number] 2021-12-31 08:54:00 2021-12-31 08:54:00 Outpatient SISSON_C [facility] [id number] [facility] 2021-12-21 12:23:00 2021-12-21 12:23:00 Outpatient SISSON_C [facility] [id number] [facility] 2021-12-21 00:00:00 2021-12-21 00:00:00 Lilly Martínez, MSN, NATIONAL EXPANSION RECRUITER, ELEVATED GUARD-C: [address], [address], [place] [address] , Ph. [facility], Lilly Martínez, MSN, ELEVATED GUARD-C [id number] [facility] 2021-12-21 00:00:00 2021-12-21 00:00:00 Outpatient Lilly Martínez [facility] [id number] 2021-12-17 07:50:00 2021-12-17 07:50:00 Outpatient SISSON_C [facility] [id number] [facility] 2021-12-14 10:34:00 2021-12-14 10:34:00 Outpatient SISSON_C [facility] [id number] [facility] 2021-12-14 00:00:00 2021-12-14 00:00:00 Lilly Martínez, MSN, NATIONAL EXPANSION RECRUITER, ELEVATED GUARD-C: [address], [address], [place] [address] , Ph. [facility], Lilly Martínez, MSN, ELEVATED GUARD-C [id number] [facility] 2021-12-14 00:00:00 2021-12-14 00:00:00 Outpatient Lilly Martínez [facility] [id number] 2021-12-11 05:55:00 2021-12-11 05:55:00 Outpatient SISSON_C [facility] [id number] [facility] 2021-12-11 00:00:00 2021-12-11 00:00:00 Lilly Martínez, MSN, NATIONAL EXPANSION RECRUITER, ELEVATED GUARD-C: [address], [place] [address] , Ph. [facility], Lilly Martínez, MSN, ELEVATED GUARD-C [id number] [facility] 2021-12-11 00:00:00 2021-12-11 00:00:00 Outpatient Tanya, Lilly [facility] [id number] 2021-12-07 05:27:00 2021-12-07 05:27:00 Outpatient SISSON_C [facility] [id number] [facility] 2021-12-07 00:00:00 2021-12-07 00:00:00 Lilly Martínez, MSN, NATIONAL EXPANSION RECRUITER, ELEVATED GUARD-C: Emma Ru[address], [address], [address], [place] [address] , Ph. [facility], Lilly Martínez, MSN, ELEVATED GUARD-C [id number] [facility] 2021-12-07 00:00:00 2021-12-07 00:00:00 Outpatient Lilly Martínez [facility] [id number] 2021-12-03 08:57:00 2021-12-03 08:57:00 Outpatient SISSON_C [facility] [id number] [facility] 2021-11-30 12:07:00 2021-11-30 12:07:00 Outpatient SISSON_C [facility] [id number] [facility] 2021-11-30 00:00:00 2021-11-30 00:00:00 Lilly Martínez, MSN, NATIONAL EXPANSION RECRUITER, ELEVATED GUARD-C: [address], [address], [address], [place] [address] , Ph. [facility], Lilly Martínez, MSN, ELEVATED GUARD-C [id number] [facility] 2021-11-30 00:00:00 2021-11-30 00:00:00 Outpatient Lilly Martínez [facility] [id number] 2021-11-27 12:19:00 2021-11-27 12:19:00 Outpatient SISSON_C [facility] [id number] [facility] 2021-11-26 08:21:00 2021-11-26 08:21:00 Outpatient WATERS_S [facility] [id number] [facility] 2021-11-22 10:51:00 2021-11-22 10:51:00 Outpatient WATERS_S [facility] [id number] [facility] 2021-11-22 00:00:00 2021-11-22 00:00:00 Lilly Martínez, MSN, NATIONAL EXPANSION RECRUITER, ELEVATED GUARD-C: [address], [address], [place] [address] , Ph. [facility], Lilly Martínez, MSN, ELEVATED GUARD-C [id number] [facility] 2021-11-22 00:00:00 2021-11-22 00:00:00 Outpatient Lilly Martínez [facility] [id number] 2021-11-19 02:48:00 2021-11-19 02:48:00 Outpatient WATERS_S [facility] [id number] [facility] 2021-11-14 11:21:00 2021-11-14 11:21:00 Outpatient WATERS_S [facility] [id number] [facility] 2021-11-14 00:00:00 2021-11-14 00:00:00 Lilly Martínez, MSN, NATIONAL EXPANSION RECRUITER, ELEVATED GUARD-C: [address], [place] [address] , Ph. [facility], Lilly Martínez, MSN, ELEVATED GUARD-C [id number] [facility] 2021-11-14 00:00:00 2021-11-14 00:00:00 Outpatient Lilly Martínez [facility] [id number] 2021-11-02 11:58:00 2021-11-02 11:58:00 Outpatient WATERS_S [facility] [id number] [facility] 2021-11-02 00:00:00 2021-11-02 00:00:00 Lilly Martínez, MSN, NATIONAL EXPANSION RECRUITER, ELEVATED GUARD-C: [address], [address], [place] [address] , Ph. [facility], Lilly Martínez, MSN, ELEVATED GUARD-C [id number] [facility] 2021-11-02 00:00:00 2021-11-02 00:00:00 Outpatient Lilly Martínez [facility] [id number] 2021-10-25 05:12:00 2021-10-25 05:12:00 Outpatient ARPAN_S [facility] [id number] [facility] 2021-10-25 00:00:00 2021-10-25 00:00:00 Outpatient Lilly Martínez [facility] [id number] 2021-10-25 00:00:00 2021-10-25 00:00:00 Lilly Martínez, MSN, NATIONAL EXPANSION RECRUITER, ELEVATED GUARD-C: [address], [place] [address] , Ph. [facility], Lilly Martínez, MSN, ELEVATED GUARD-C [id number] [facility] 2021-10-24 05:47:00 2021-10-24 05:47:00 Outpatient WATERS_S [facility] [id number] [facility] 2021-10-04 04:17:00 2021-10-04 04:17:00 Outpatient WATERS_S [facility] [id number] [facility] 2021-08-15 05:25:00 2021-08-15 05:25:00 Outpatient SCHAUBROECK _L [facility] [id number] [facility] 2021-08-15 00:00:00 2021-08-15 00:00:00 Outpatient Germania Calix [facility] [id number] 2021-08-15 00:00:00 2021-08-15 00:00:00 Germania talbot, AGNP-C: [address] [place] [address], [address] [place] [address] , Ph. [facility] [id number] [facility] 2021-08-02 03:43:00 2021-08-02 03:43:00 Outpatient SCHAUBROECK _L [facility] [id number] [facility] 2021-08-02 00:00:00 2021-08-02 00:00:00 Germania talbot AGNP-C: [address] [place] [address], [address] [place] [address] , Ph. [facility] [id number] [facility] 2021-08-02 00:00:00 2021-08-02 00:00:00 Outpatient Germania Calix [facility] [id number] 2021-07-18 01:02:00 2021-07-18 01:02:00 Outpatient SCHAUBROECK _L [facility] [id number] [facility] 2021-07-18 00:00:00 2021-07-18 00:00:00 PAIGE Deleon-C: [address] [place] [address], [address] [place] [address] , Ph. [facility] [id number] [facility] 2021-07-18 00:00:00 2021-07-18 00:00:00 Outpatient JennGermania jean-baptiste [facility] [id number] 2021-04-17 05:48:00 2021-04-17 05:48:00 Outpatient SCHAUBROECK _L [facility] [id number] [facility] 2021-04-17 00:00:00 2021-04-17 00:00:00 PAIGE Deleon-C: [address] [place] [address], [address] [place] [address] , Ph. [facility] [id number] [facility] 2021-04-17 00:00:00 2021-04-17 00:00:00 Outpatient JennGermania jean-baptiste [facility] [id number] 2020-12-19 01:59:00 2020-12-19 01:59:00 Outpatient SCHAUBROECK _L [facility] [id number] [facility] 2020-12-19 00:00:00 2020-12-19 00:00:00 Germania talbot AGNP-: [address] [facility], [address], [place] [address] , Ph. [facility] [place] [facility] [id number] [facility] 2020-12-19 00:00:00 2020-12-19 00:00:00 Outpatient Germania Calix [facility] [id number] 2020-06-29 09:44:00 2020-06-29 09:44:00 Outpatient Rachid [facility] [id number] [facility] 2020-04-13 11:53:00 2020-04-13 11:53:00 Outpatient HILTON CUEVASGERMANIA HU [facility] [id number] [facility] Results Test Description Test Time Test Comments Results Result Co mments Source [facility] Ag [Presence] in Respiratory specimen by Rapid [id number] 14:58:00* Test Item Value Reference Range Interpretation Comme nts SARS CoV 2 (test code = SARS CoV 2) negative [facility] [Mass/volume] in [id number] 00:00:00* Test Item Value Reference Range Interpretation Comme nts Thiamine [Moles/volume] in B lood (test code = 27084-5) 151.7 nmol/L 66.5-200.0 [facility]iodothyronine (T3).reverse [Mass/volume] in Serum or [id number] 00:00:00* Test Item Value Reference Range Interpretation Comme nts Triiodothyronine (T3).revers e [Mass/volume] in Serum or Plasma (test code = 3052-8) 14.1 NG/dL 9.2-24.1 [facility] and TSH panel - Serum or Plasma 2021-07-26 00:00:00* Test Item Value Reference Range Interpretation Comme nts Thyrotropin [Units/volume] i n Serum or Plasma by Detection limit <= 0.005 mIU/L (test code = 08189-3) 10.400 uIU/mL 0.450-4.500 H Thyroxine (T4) free [Mass/volume] in Serum or Plasma (test code = 3024-7) 0.82 NG/dL 0.82-1.77 [facility] W Auto Differential panel - [id number] 00:00:00* Test Item Value Reference Range Interpretation [...] immature cells (test code = immature cells) 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 Immature granulocytes [#/volume] in Blood by Automated count (test code = 93253-6) 0.1 x10e3/uL 0.0-0.1 Nucleated erythrocytes/100 leukocytes [Ratio] in Blood by Automated count (test code = 62665-0) catalog library assistant Morphology [Interpretation] in Blood Narrative (test code = 93940-1) catalog library assistant [facility]ics[facility] 2000 panel - Serum or [id number] 00:00:00* Test Item Value Reference Range Interpretation [...] by Creatinine-based formula (CKD-EPI) (test code = 79697-2) 92 mL/min/1.73 >59 Glomerular filtration rate/1.73 sq M.predicted among blacks [Volume Rate/Area] in Serum, Plasma or Blood by Creatinine-based formula (CKD-EPI) (test code = 47077-1) 106 mL/min/1.73 >59 Urea nitrogen/Creatinine [Mass Ratio] [...] in Serum or Plasma (test code = 99787-9) 9.1 mg/dL 8.7-10.2 Protein [Mass/volume] in Serum or Plasma (test code = 2885-2) 7.1 g/dL 6.0-8.5 Albumin [Mass/volume] in Serum or Plasma (test code = 1751-7) 4.0 g/dL 3.8-4.8 Globulin [Mass/volume] in Serum by calculation (test code = 52308-4) 3.1 g/dL 1.5-4.5 Albumin/Globulin [Mass Ratio ] [...] (test code = 1742-6) 17 IU/L 0-32 [facility]icsLipid 1996 panel - Serum or [id number] 00:00:00* Test Item Value Reference Range Interpretation [...] or Plasma by calculation (test code = 62843-4) 27 mg/dL 5-40 Cholesterol in LDL [Mass/vol ume] in Serum or Plasma by calculation (test code = 44537-8) 107 mg/dL 0-99 H Laboratory comment [Text] in Report Narrative (test code = 67118-8) catalog library assistant Cholesterol in LDL/Cholester ol in HDL [Mass Ratio] in Serum or Plasma (test code = 47551-4) 2.5 ratio 0.0-3.2 [facility] [Mass/volume] in Serum or [id number] 00:00:00* Test Item Value Reference Range Interpretation [...] = 2502-3) 13 % 15-55 L [facility]Folate+Cyanocobalamin [Interpretation] in Serum or [id number] 00:00:00* Test Item Value Reference Range Interpretation Comme nts Cobalamin (Vitamin B12) [Mass/volume] in Serum or Plasma (test code = 2132-9) 249 pg/mL 232-1245 Folate [Mass/volume] in Seru m or Plasma (test code = 2284-8) 8.0 NG/mL >3.0 [facility]25-Hydroxyvitamin D3+25-Hydroxyvitamin D2 [Mass/volume] in Serum or [id number] 00:00:00* Test Item Value Reference Range Interpretation Comme nts 25-Hydroxyvitamin D3+25-Hydroxyvitamin D2 [Mass/volume] in Serum or Plasma (test code = 21833-5) 12.6 NG/mL 30.0-100.0 L [facility] ClinicsFerritin [Mass/volume] in Serum or Plasma 2021-07-26 00:00:00* Test Item Value Reference Range Interpretation Comme nts Ferritin [Mass/volume] in Se rum or Plasma (test code = 2276-4) 75 NG/mL 15-150 [facility] ClinicsMagnesium [Mass/volume] in Serum or Plasma 2021-07-26 00:00:00* Test Item Value Reference Range Interpretation Comme nts Magnesium [Mass/volume] in S kei or Plasma (test code = 44605-0) 1.9 mg/dL 1.6-2.3 [facility] ClinicsTriiodothyronine (T3) Free [Mass/volume] in Serum or [id number] 00:00:00* Test Item Value Reference Range Interpretation Comme nts Triiodothyronine (T3) Free [Mass/volume] in Serum or Plasma (test code = 3051-0) 3.4 pg/mL 2.0-4.4 [facility]yro[facility]oxidase Ab [Units/volume] in Serum or [id number] 00:00:00* Test Item Value Reference Range Interpretation Comme nts Thyroperoxidase Ab [Units/vo lume] in Serum (test code = 8099-4) >600 0-34 H [facility]
--- NOTE | 2024-11-26 14:49 | EDPHYS ---
Physician Documentation [facility] Name: Susan Mendez Age: 54 yrs Sex: Female : 1970 Arrival Date: 11/26/2024 Time: 11:46 Bed 12 Private MD: SOLANGE Physician Rudy Mayer HPI: 11/26 14:40 This 54 yrs old Female presents to ER via Ambulatory with complaints of Leg antoni Swelling. 14:40 The patient presents with decreased range of motion, pain, that is acute. The antoni complaints affect the lateral aspect of right knee, lateral aspect of right calf, posterior aspect of right knee, medial aspect of right knee, medial aspect of right calf, right breen and anterior aspect of right ankle. Context: The problem was sustained at an unknown site, resulted from a chronic condition. Onset: The symptoms/episode began/occurred 3 day(s) ago. Modifying factors: The symptoms are alleviated by elevating leg, the symptoms are aggravated by movement. Associated signs and symptoms: The patient has no apparent associated signs or symptoms. Treatment prior to arrival includes: no previous treatment. Severity of symptoms: At their worst the symptoms were mild, in the emergency department the symptoms are unchanged. The patient has experienced similar episodes in the past, chronically. 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 - Infectious Disease History:: Denies. - Social history:: Smoking status: Patient denies any tobacco usage or history of. - Family history:: not pertinent. ROS: 14:40 Constitutional: Negative for fever, chills, and weight loss, Eyes: Negative for injury, antoni pain, redness, and discharge, ENT: Negative for injury, pain, and discharge, Neck: Negative for injury, pain, and swelling, Cardiovascular: Negative for chest pain, palpitations, and edema, Respiratory: Negative for shortness of breath, cough, wheezing, and pleuritic chest pain, Abdomen/GI: Negative for abdominal pain, nausea, vomiting, diarrhea, and constipation, Back: Negative for injury and pain, : Negative for injury, bleeding, discharge, and swelling, Neuro: Negative for headache, weakness, numbness, tingling, and seizure, Psych: Negative for depression, anxiety, suicide ideation, homicidal ideation, and hallucinations, Allergy/Immunology: Negative for hives, rash, and allergies, Endocrine: Negative for neck swelling, polydipsia, polyuria, polyphagia, and marked weight changes, Hematologic/Lymphatic: Negative for swollen nodes, abnormal bleeding, and unusual bruising, 14:40 MS/extremity: Positive for erythema, pain, warmth, of the right leg, Exam: 14:40 Constitutional: This is a well developed, well nourished patient who is awake, alert, antoni and in no acute distress. Head/Face: Normocephalic, atraumatic. Eyes: Pupils equal round and reactive to light, extra-ocular motions intact. Lids and lashes normal. Conjunctiva and sclera are non-icteric and not injected. Cornea within normal limits. Periorbital areas with no swelling, redness, or edema. ENT: Nares patent. No nasal discharge, no septal abnormalities noted. Tympanic membranes are normal and external auditory canals are clear. Oropharynx with no redness, swelling, or masses, exudates, or evidence of obstruction, uvula midline. Mucous membranes moist. Neck: Trachea midline, no thyromegaly or masses palpated, and no cervical lymphadenopathy. Supple, full range of motion without nuchal rigidity, or vertebral point tenderness. No Meningismus. Chest/axilla: Normal chest wall appearance and motion. Nontender with no deformity. No lesions are appreciated. Cardiovascular: Regular rate and rhythm with a normal S1 and S2. No gallops, murmurs, or rubs. Normal PMI, no JVD. No pulse deficits. Respiratory: Lungs have equal breath sounds bilaterally, clear to auscultation and percussion. No rales, rhonchi or wheezes noted. No increased work of breathing, no retractions or nasal flaring. Abdomen/GI: Soft, non-tender, with normal bowel sounds. No distension or tympany. No guarding or rebound. No evidence of tenderness throughout. Back: No spinal tenderness. No costovertebral tenderness. Full range of motion. Neuro: Awake and alert, GCS 15, oriented to person, place, time, and situation. Cranial nerves II-XII grossly intact. Motor strength 5/5 in all extremities. Sensory grossly intact. Cerebellar exam normal. Normal gait. 14:40 Musculoskeletal/extremity: ROM: intact in all extremities, Sensation intact. Compartment Syndrome exam of affected extremity: is normal. Weight bearing: able to fully bear weight, DVT Exam: pain, swelling, tenderness, erythema, increased warmth, that is mild, of the right leg, of the right leg, 14:40 Skin: abscess, not appreciated, cellulitis, that is moderate, induration, that is moderate is noted, injury, is not appreciated, 17:50 ECG was reviewed by the Attending Physician. [facility] Vital Signs: 12:12 Weight 117.93 kg; Height 5 ft. 3 in. ; Pain 7/10; ap3 12:12 BP 126 / 72; Pulse 78; Resp 18; Temp 98; Pulse Ox 97% on R/A; ap3 15:30 BP 168 / 88; Pulse 88; Resp 15; Pulse Ox 97% on R/A; hb 17:00 BP 156 / 86; Pulse 82; Resp 16; Pulse Ox 99% on R/A; hb 12:12 Body Mass Index 46.06 (117.93 kg, 160.02 cm) ap3 12:12 Pain Scale: Adult ap3 MDM: 11:57 Medical Screening Exam initiated antoni 14:45 Differential diagnosis: contusion, tendonitis. Data reviewed: vital signs, nurses [facility] notes, lab test result(s), EKG, radiologic studies, doppler, plain films. Consideration of Admission/Observation Patient was admitted/placed on observation. Escalation of care including admission/observation considered. I considered the following discharge prescriptions or medication management in the emergency department Medications were administered in the Emergency Department. See MAR. Independent interpretation of the following test(s) in the Emergency Department EKG: See my EKG interpretation above. Test considered but Not performed: CT: no ct le. Care significantly affected by the following chronic conditions: Hypertension, Obesity, anxiety , depression, hypothyroid. 11/26 14:36 Order name: Basic Metabolic Panel; Complete Time: 17:00 [facility] 11/26 14:36 Order name: CBC with Diff; Complete Time: 17:00 [facility] 11/26 14:36 Order name: LFT's; Complete Time: 17:00 [facility] 11/26 14:36 Order name: Magnesium; Complete Time: 17: [facility] 11/26 14:36 Order name: NT PRO-BNP; Complete Time: 17:00 [facility] 11/26 14:36 Order name: PT-INR; Complete Time: 17:00 [facility] 11/26 14:36 Order name: Troponin HS; Complete Time: 17:00 [facility] 11/26 14:36 Order name: Blood Culture Adult (2) [facility] 11/26 14:36 Order name: Lactate w/ 2H reflex if indic.; Complete Time: 17:00 [facility] 11/26 14:36 Order name: Urinalysis w/ reflexes [facility] 11/26 16:33 Order name: Basic Metabolic Panel [facility] 11/26 16:33 Order name: Basic Metabolic Panel [facility] 11/26 14:36 Order name: XRAY Chest (1 view); Complete Time: 17:00 [facility] 11/26 14:36 Order name: US Extremity Venous W Compression Ken; Complete Time: 17:00 [facility] 11/26 14:36 Order name: Cardiac monitoring; Complete Time: 16:26 [facility] 11/26 14:36 Order name: EKG - Nurse/Tech; Complete Time: 17:08 [facility] 11/26 14:36 Order name: IV Saline Lock; Complete Time: 16:26 [facility] 11/26 14:36 Order name: Labs collected and sent; Complete Time: 16:26 [facility] 11/26 14:36 Order name: O2 Per Protocol; Complete Time: 16: [facility] 11/26 14:36 Order name: O2 Sat Monitoring; Complete Time: 16:26 [facility] EC:50 Rate is 75 beats/min. Rhythm is regular. QRS [place]gor[place] is Normal. WV interval is normal. QRS antoni interval is normal. QT interval is normal. No Q waves. T waves are Normal. ST Segment is depressed in leads II, III, aVF, V4, V5, V6. Clinical impression: NSR w/ Non-specific ST/T Changes. Interpreted by me. Reviewed by me. Administered Medications: 15:35 Drug: NS 0.9% IV (30 ml/kg) 30 ml/kg IV at bolus once; Sepsis Protocol; to be given as hb a bolus over 90 minutes Route: IV; Rate: bolus; Site: right antecubital; 21:44 Follow up: Response: No adverse reaction; IV Status: Completed infusion; IV Intake: me1 3537.9ml 16:03 Drug: Ampicillin-Sulbactam Sodium IVPB 3 grams IVPB once over 30 mins; (mix in 100 mL hb NS) Route: IVPB; Infused Over: 30 mins; Site: right antecubital; 16:33 Follow up: Response: No adverse reaction; IV Status: Completed infusion; IV Intake: hb 100ml 16:03 Drug: Famotidine IVP 20 mg IVP once; dilute with 10 mL 0.9% NaCl; give over 2 minutes hb Route: IVP; Site: right antecubital; 21:45 Follow up: Response: No adverse reaction me1 16:03 Drug: Lovenox Sub-Q 40 mg Sub-Q once Route: Sub-Q; Site: abdomen; hb 21:45 Follow up: Response: No adverse reaction me1 16:33 Drug: vancoMYCIN IVPB 1.5 grams IVPB at calculated rate once Route: IVPB; Rate: hb calculated rate; Site: right antecubital; 21:45 Follow up: Response: No adverse reaction; IV Status: Completed infusion; IV Intake: me1 250ml Disposition Summary: 11/26/24 14:48 Hospitalization Ordered Notes: Provider: Wilma Silva cha Condition: Fair antoni Problem: an acute exacerbation antoni Symptoms: are unchanged antoni Bed/Room Type: Standard antoni Hospitalization Status: Inpatient Admission(11/26/24 14:51) antoni Location: Telemetry/MedSurg (observation)(11/26/24 21:41) Room Assignment: [facility](11/26/24 21:41) Diagnosis - Lymphedema, not elsewhere classified antoni - Cellulitis of right lower limb antoni - Obesity due to excess calories antoni Forms: - Medication Reconciliation Form antoni - SBAR form antoni - Leadership Thank You Letter antoni Signatures: Dispatcher [employer] Rudy Wolff MD MD cha Baxter, Heather RN Mary Luis RN RN [email or web address] Lian Mckeon RN RN 3 Tata Torres Isabela Lowery RN me1 Corrections: (The following items were deleted from the chart) 14:36 14:36 BASIC METABOLIC PANEL+C.LAB.BRZ ordered. EDMS EDMS 14:36 14:36 CBC+H.LAB.BRZ ordered. EDMS EDMS 14:36 14:36 HEPATIC FUNCTION+C.LAB.BRZ ordered. EDMS EDMS 14:36 14:36 MAGNESIUM+C.LAB.BRZ ordered. EDMS EDMS 14:36 14:36 PROBNP+C.LAB.BRZ ordered. EDMS EDMS 14:36 14:36 PROTIME (+INR)+COAG.LAB.BRZ ordered. EDMS EDMS 14:36 14:36 Troponin High Sensitivity+C.LAB.BRZ ordered. EDMS EDMS 14:36 14:36 BLOOD CULTURE*+BA.LAB.BRZ ordered. EDMS EDMS 14:36 14:36 LACTATE+C.LAB.BRZ ordered. EDMS EDMS 14:36 14:36 Urinalysis+U.LAB.BRZ ordered. EDMS EDMS 14:36 14:36 Chest Single View+RAD.RAD.BRZ ordered. EDMS EDMS 14:36 14:36 Extrem Venous W Compression Ken+US.RAD.BRZ ordered. EDMS EDMS 14:51 14:48 Observation antoni antoni 17:43 14:48 Telemetry/MedSurg (Inpatient) antoni kb3 17:43 14:48 antoni kb3 21:41 17:43 [facility] ER HOLD kb3 hw 21:41 17:43 ERHOLD- kb3 hw
--- NOTE | 2024-11-26 14:49 | ER ---
Nurse's Notes [facility] Name: Susan Mendez Age: 54 yrs Sex: Female : 1970 Arrival Date: 11/26/2024 Time: 11:46 Bed 12 Private MD: Diagnosis: Lymphedema, not elsewhere classified;Cellulitis of right lower limb;Obesity due to excess calories Presentation: 11/26 12:12 Chief complaint: Patient states: she was sent by her dr for right lower extremity ap3 redness and swelling. patient reports her pain is currently a 7/10 on the pain scale. Coronavirus screen: At this time, the client does not indicate any symptoms associated with coronavirus-19. Ebola Screen: No symptoms or risks identified at this time. Risk Assessment: Do you want to hurt yourself or someone else? Patient reports no desire to harm self or others. Onset of symptoms was November 24, 2024. 12:12 Method Of Arrival: Ambulatory ap3 12:12 Acuity: NEL 3 ap3 12:13 Initial Sepsis Screen: Does the patient meet any 2 criteria? No. Patient's initial ap3 sepsis screen is negative. Does the patient have a suspected source of infection? No. Patient's initial sepsis screen is negative. Triage Assessment: 12:14 General: Appears in no apparent distress. Behavior is calm, cooperative, appropriate ap3 for age. Pain: Complains of pain in right leg Pain currently is 7 out of 10 on a pain scale. Neuro: Level of Consciousness is awake, alert, obeys commands, Oriented to person, place, time, situation, Appropriate for age. Cardiovascular: Patient's skin is warm and dry. Respiratory: Airway is patent Respiratory effort is even, unlabored, Respiratory pattern is regular, symmetrical. 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 - Infectious Disease History:: Denies. - Social history:: Smoking status: Patient denies any tobacco usage or history of. - Family history:: not pertinent. Screenin:15 [facility] ED Fall Risk Assessment (Adult) History of falling in the last 3 months, ap3 including since admission No falls in past 3 months (0 pts) Confusion or Disorientation No (0 pts) Intoxicated or Sedated No (0 pts) Impaired Gait No (0 pts) Mobility Assist Device Used No (0 pt) Altered Elimination No (0 pt) Score/Fall Risk Level 0 - 2 = Low Risk Oriented to surroundings, Maintained a safe environment, Educated pt \T\ family on fall prevention, incl call for assistance when getting out of bed, Assessed \T\ reinforced patient's understanding of fall precautions, Hourly rounding (assess needs \T\ fall precautionary measures) done, Used ambulatory aids as needed (educated on \T\ assisted with). Abuse screen: Denies threats or abuse. Nutritional screening: No deficits noted. Tuberculosis screening: No symptoms or risk factors identified. Assessment: 13:30 General: Appears in no apparent distress. Behavior is calm, cooperative. hb 13:30 Neuro: Level of Consciousness is awake, alert, obeys commands, Oriented to person, hb place, time, situation. Cardiovascular: Patient's skin is warm and dry. Respiratory: Respiratory effort is even, unlabored, Respiratory pattern is regular, symmetrical. GI: No signs and/or symptoms were reported involving the gastrointestinal system. : No signs and/or symptoms were reported regarding the genitourinary system. EENT: No signs and/or symptoms were reported regarding the EENT system. Derm: Skin is normal, RLE reddened, BLE 3+ edema. Musculoskeletal: No signs and/or symptoms reported regarding the musculoskeletal system. 14:30 Reassessment: Patient appears in no apparent distress at this time. Patient and/or hb family updated on plan of care and expected duration. Pain level reassessed. Patient is alert, oriented x 3, equal unlabored respirations, skin warm/dry/pink. Reassessment: Patient appears in no apparent distress at this time. Patient and/or family updated on plan of care and expected duration. Pain level reassessed. Patient is alert, oriented x 3, equal unlabored respirations, skin warm/dry/pink. 16:30 Reassessment: Patient appears in no apparent distress at this time. Patient and/or hb family updated on plan of care and expected duration. Pain level reassessed. Patient is alert, oriented x 3, equal unlabored respirations, skin warm/dry/pink. 17:30 Reassessment: Patient appears in no apparent distress at this time. Patient and/or hb family updated on plan of care and expected duration. Pain level reassessed. Patient is alert, oriented x 3, equal unlabored respirations, skin warm/dry/pink. Vital Signs: 12:12 Weight 117.93 kg; Height 5 ft. 3 in. ; Pain 7/10; ap3 12:12 BP 126 / 72; Pulse 78; Resp 18; Temp 98; Pulse Ox 97% on R/A; ap3 15:30 BP 168 / 88; Pulse 88; Resp 15; Pulse Ox 97% on R/A; hb 17:00 BP 156 / 86; Pulse 82; Resp 16; Pulse Ox 99% on R/A; hb 12:12 Body Mass Index 46.06 (117.93 kg, 160.02 cm) ap3 12:12 Pain Scale: Adult ap3 ED Course: 11:49 Patient arrived in ED. mr 11:57 Rudy Mayer MD is Attending Physician. antoni 12:13 Triage completed. ap3 12:15 Arm band placed on right wrist. ap3 13:48 Laura Hewitt, RN is Primary Nurse. hb 14:30 Patient has correct armband on for positive identification. Provided Education on: hb tests, result times. 14:47 Wilma Silva MD is Hospitalizing Provider. antoni 15:14 US Extremity Venous W Compression Ken In Process Unspecified. EDMS 15:22 XRAY Chest (1 view) In Process Unspecified. EDMS 15:35 First set of blood cultures drawn by me. hb 16:02 Inserted saline lock: 20 gauge in right antecubital area, using aseptic technique. hb Blood collected. Flushed with 10 mL NS. 16:02 Initial lab(s) drawn, by me, sent to lab. Second set of blood cultures drawn. Inserted. hb 16:26 Basic Metabolic Panel Sent. hb 16:26 LFT's Sent. hb 16:26 Magnesium Sent. hb 16:26 NT PRO-BNP Sent. hb 16:26 PT-INR Sent. hb 16:26 Troponin HS Sent. hb 17:07 EKG done, by ED staff, reviewed by Rudy Mayer MD. kb4 17:45 No provider procedures requiring assistance completed. Patient admitted, IV remains in hb place. Administered Medications: 15:35 Drug: NS 0.9% IV (30 ml/kg) 30 ml/kg IV at bolus once; Sepsis Protocol; to be given as hb a bolus over 90 minutes Route: IV; Rate: bolus; Site: right antecubital; 21:44 Follow up: Response: No adverse reaction; IV Status: Completed infusion; IV Intake: me1 3537.9ml 16:03 Drug: Ampicillin-Sulbactam Sodium IVPB 3 grams IVPB once over 30 mins; (mix in 100 mL hb NS) Route: IVPB; Infused Over: 30 mins; Site: right antecubital; 16:33 Follow up: Response: No adverse reaction; IV Status: Completed infusion; IV Intake: hb 100ml 16:03 Drug: Famotidine IVP 20 mg IVP once; dilute with 10 mL 0.9% NaCl; give over 2 minutes hb Route: IVP; Site: right antecubital; 21:45 Follow up: Response: No adverse reaction me1 16:03 Drug: Lovenox Sub-Q 40 mg Sub-Q once Route: Sub-Q; Site: abdomen; hb 21:45 Follow up: Response: No adverse reaction me1 16:33 Drug: vancoMYCIN IVPB 1.5 grams IVPB at calculated rate once Route: IVPB; Rate: hb calculated rate; Site: right antecubital; 21:45 Follow up: Response: No adverse reaction; IV Status: Completed infusion; IV Intake: me1 250ml Medication: 17:30 VIS not applicable for this client. hb Intake: 16:33 IV: 100ml; Total: 100ml. hb 21:44 IV: 3538ml; Total: 3638ml. me1 21:45 IV: 250ml; Total: 3888ml. me1 Outcome: 14:48 Decision to Hospitalize by Provider. antoni 17:45 Admitted to ER Hold. Please see [facility] for further documentation. hb 17:45 Condition: stable 17:45 Instructed on the need for admit, Demonstrated understanding of instructions, 21:54 Admitted to Med/surg accompanied by tech, via wheelchair, room 406, with chart, Report me1 called to faxed, receipt confirmed with Nano 22:46 Patient left the ED. me1 Signatures: Dispatcher [employer] EDRudy Zepeda MD MD cha Rivera, Mary, Reg Reg mr Laura Hewitt, MORENA RN hb Mary Carroll RN RN ap3 Isabela Lowery RN RN me1 Angie Hu kb4 Corrections: (The following items were deleted from the chart) 16:33 16:03 vancoMYCIN IVPB 1.5 grams IVPB at calculated rate in right antecubital hb hb 16:33 16:32 Ampicillin-Sulbactam Sodium IVPB 3 grams IVPB in right antecubital over 30 mins hbhb
[2024-11-26] MEDS ORDERED: VANCOMYCIN 1 GM/VIAL ONE (14:55)
[2024-11-26] MEDS ORDERED: AMPICILLIN/SULBACT 1.5GM VIAL ONE (14:55)
[2024-11-26] MEDS ORDERED: VANCOMYCIN 500 MG/VIAL ONE (14:56)
[2024-11-26] MEDS ORDERED: NA CHLORIDE 0.9% 500 ML ONE (14:56)
[2024-11-26] MEDS ORDERED: FAMOTIDINE 20 MG/2 ML VIAL IV ONE (14:56)
[2024-11-26] MEDS ORDERED: ENOXAPARIN 40 MG/0.4 ML SQ ONE (14:56)
[2024-11-26] MEDS ORDERED: NA CHLORIDE 0.9% 100 ML ONE (14:56)
[2024-11-26] MEDS ORDERED: NA CHLORIDE 0.9% 3,000 ML ONE (14:57)
[2024-11-26] MEDS ORDERED: AMPICILLIN/SULBACTAM 3GM/VIAL ONE (14:58)
--- NOTE | 2024-11-26 15:21 | RAD REPORT ---
EXAMINATION: US LOWER EXTREMITY VENOUS DOPPLER BILATERAL CLINICAL INDICATION: Female, 54 years old.PAIN TECHNIQUE: Complete bilateral duplex sonography of the lower extremity veins was performed. The exami nation included compression for vein patency, color Doppler imaging and flow augmentation in response to distal compression of the distal external iliac, common femoral, femoral, popliteal, thomas sloane, tibial and great saphenous veins. [id number]. COMPARISON: No prior exams FINDINGS: Duplex sonography imaging demonstrates all deep examined to be fully compressible with spontaneous, p hasic and augmented flow bilaterally. IMPRESSION: No evidence of deep venous thrombosis seen in either lower extremity.
--- NOTE | 2024-11-26 15:33 | RAD REPORT ---
EXAM: Chest Single View HISTORY: COUGH COMPARISON: 10/04/2024 FINDINGS: LUNGS/PLEURA: Pulmonary vascular congestion. No focal consolidation. MEDIASTINUM: The mediastinal silhouette is within normal limits. CARDIAC: Mild cardiomegaly UPPER ABDOMEN: No significant abnormality. BONES: No acute abnormality. LINES/TUBES/OTHER: N/A IMPRESSION: Pulmonary vascular congestion. No focal consolidative airspace disease.
[2024-11-26 16:21] LABS: Absolute Basophils 0.1 K/uL (0-0.5); Absolute Eosinophils 0.1 K/uL (0-0.5); Absolute Monocytes 0.7 K/uL (0.1-1.3); Absolute Neutrophil 7.1 K/uL (1.8-8.0); Basophils % 0.7 % (0-1.3); Eosinophils % 1.1 % (0-4.4); Hematocrit 34.9 % (36.0-45.0); Hemoglobin 11.6 g/dL (12.0-15.0); Lymphocytes % 20.5 % (15.3-44.8); MCH 30.2 pg (27.0-35.0); MCHC 33.3 g/dL (32.0-36.0); MCV 90.7 fL (80-100); MPV 7.2 fL (7.6-11.3); Monocytes % 6.7 % (3.3-12.3); Nucleated Red Blood Cells % 0.1 % (0-0); Platelets 218 thou/uL (152-406); RBC Red Blood Cell Count 3.85 M/uL (3.86-4.86); Red Cell Distribution Width 14.7 % (12.1-15.2)
[2024-11-26 16:28] LABS: PT Prothrombin Time 13.1 SECONDS (10.0-13.0); Protime INR 1.16
[2024-11-26] MEDS ORDERED: ACETAMINOPHEN 500 MG TAB PO PRN (16:28)
[2024-11-26] MEDS ORDERED: MORPHINE 2 MG/ML SYR IV PRN (16:28)
[2024-11-26] MEDS ORDERED: ONDANSETRON 4 MG/2 ML VIAL IV PRN (16:28)
[2024-11-26] MEDS ORDERED: MELATONIN 3 MG TABLET PO PRN (16:32)
[2024-11-26 16:40] LABS: ALT/SGPT 17 U/L (13-56); AST/SGOT 13 U/L (15-37); Albumin 2.8 g/dL (3.4-5.0); Albumin/Globulin Ratio 0.5 (1.1-1.8); Alkaline Phosphatase 78 U/L (45-117); Anion Gap 8.5 mEq/L (5.0-15.0); BUN Blood Urea Nitrogen 12 mg/dL (7-18); Bicarbonate 29 mEq/L (21-32); Bilirubin Total 0.2 mg/dL (0.2-1.0); Globulin 5.5 g/dL (2.3-3.5); Glomerular Filtration Rate 96 ml/min (=/>90); Glucose Level 79 mg/dL (74-106); NT PRO-BNP 73 pg/mL (<125); Potassium 3.5 mEq/L (3.5-5.1); Protein, Total 8.3 g/dL (6.4-8.2); Sodium Level 136 mEq/L (136-145); Troponin High Sensitivity 6.1 pg/mL (<58.9)
--- NOTE | 2024-11-26 16:40 | P.HP ---
Certification for Inpatient Patient will require the following post-hospital care: None Practitioner: I am a practitioner with admitting privileges, knowledge of patient current condition, hospital course, and medical plan of care. Services: Services provided to patient in accordance with Admission requirements found in Title 42 Section 412.3 of the Code of Federal Regulations Patient History Date of Service: 11/26/24 Reason for admission: Cellulitis History of Present Illness: This is a 54-year-old with a past medical history of lymphadema, anxiety/depression, hypothyroidism, morbid obesity presenting with right lower leg swelling and redness. She states she has had an episode like this since last October. She denies fevers, chills, significant pain, recent trauma. She does follow with the lymphadema clinic. She states at the clinic they wrapped her feet. Allergies No Known Allergies Allergy (Verified 10/03/24 18:41) Home Medications: Dextromethorphan HBr/Bupropion [Auvelity ER 45-105 mg Tablet] 1 tab PO BID 10/03/24 Levothyroxine Sodium [Tirosint] 1 tab PO DAILY 10/03/24 Omeprazole [Prilosec] 40 mg PO DAILY 10/03/24 hydroCHLOROthiazide [Hydrochlorothiazide*] 1 tab PO DAILY 10/03/24 Ciprofloxacin HCl [Cipro 500 MG Tablet] 500 mg PO BID #16 tab 10/08/24 Doxycycline Hyclate 100 mg PO BID #16 10/08/24 Melatonin [Melatonin*] 3 mg PO BEDTIME PRN PRN 10/08/24 Potassium Oral Tab [Klor-Con 10 mEq Tab*] 10 meq PO DAILY #30 tab 10/08/24 Silver Sulfadiazine Crm [Silvadene*] 1 appl TOP BID #1 tube 10/08/24 - Past Medical/Surgical History Diabetic: No -: chf -: cad -: obesity - Social History Alcohol use: No CD- Drugs: No Caffeine use: Yes Review of Systems Integumentary: Rash Physical Examination - Physical Exam General: Alert, In no apparent distress, Obese HEENT: Atraumatic, Normocephalic Neck: Supple Respiratory: Clear to auscultation bilaterally, Normal air movement Cardiovascular: No edema, Normal pulses, Edema Capillary refill: <2 Seconds Gastrointestinal: Normal bowel sounds Musculoskeletal: No clubbing Integumentary: Rash(es) Neurological: Normal gait - Studies Laboratory Data (last 24 hrs) 11/26/24 11/26/24 16:01 16:01 WBC 10.00 Hgb 11.6 L Hct 34.9 L Plt Count 218 PT 13.1 H INR 1.16 Assessment and Plan - Plan Cellulitis of the right leg Lymphedema Obesity Hypothyroidism Anxiety depression -Normal WBC. Was given a dose of vancomycin and Unasyn in the ED. start Rocephin. Monitor cultures -Obtain procalcitonin -Elevate legs -Negative lower extremity venous Doppler -Consider compression stockings -Continue levothyroxine -Continue hydrochlorothiazide -DVT prophylaxis with Lovenox Discharge Plan: Home - Advance Directives Does patient have a Living Will: No Does patient have a Durable POA for Healthcare: No - Code Status/Comfort Care Code Status: Full Code
[2024-11-26 16:41] LABS: Bilirubin Direct < 0.2 mg/dL (0-0.2)
[2024-11-26 19:14] VITALS: BMI 46.0
[2024-11-27] MEDS: LEVOTHYROXINE SOD 0.025 MG TAB PO SCH (06:02)
[2024-11-27 06:35] LABS: Anion Gap 8.6 mEq/L (5.0-15.0); Potassium 3.6 mEq/L (3.5-5.1)
[2024-11-27 07:49] LABS: Absolute Basophils 0.1 K/uL (0-0.5); Absolute Eosinophils 0.1 K/uL (0-0.5); Absolute Lymphocytes (CBC) 1.7 K/uL (0.7-4.9); Absolute Monocytes 0.4 K/uL (0.1-1.3); Absolute Neutrophil 4.1 K/uL (1.8-8.0); Basophils % 0.9 % (0-1.3); Eosinophils % 2.3 % (0-4.4); Hematocrit 31.8 % (36.0-45.0); Hemoglobin 10.5 g/dL (12.0-15.0); Lymphocytes % 26.7 % (15.3-44.8); MCH 30.2 pg (27.0-35.0); MCHC 32.9 g/dL (32.0-36.0); MCV 91.8 fL (80-100); MPV 7.2 fL (7.6-11.3); Neutrophils % 64.1 % (41.7-73.7); Platelets 211 thou/uL (152-406); RBC Red Blood Cell Count 3.47 M/uL (3.86-4.86); Red Cell Distribution Width 14.8 % (12.1-15.2)
[2024-11-27] MEDS: hydroCHLOROthiazide 12.5 MG CAP PO SCH (08:07)
[2024-11-27] MEDS: PANTOPRAZOLE 40MG TABLET PO SCH (08:07)
[2024-11-27] MEDS: CEFTRIAXONE 1,000 MG in NA CHLORIDE 0.9% 50 ML IVPB SCH (08:08)
[2024-11-27] MEDS ORDERED: HOME MED 1 EA UNK (Levothyroxine Sodium [Tirosint] 37.5 MCG Capsule) PO SCH (09:00)
[2024-11-27] MEDS ORDERED: HOME MED 1 EA UNK (Omeprazole [Prilosec] 40 MG Capsule.Dr) PO SCH (09:00)
--- NOTE | 2024-11-27 11:18 | P.PN ---
Subjective Date of Service: 11/27/24 Chief Complaint: Cellulitis Seen resting comfortably in bed. She is able to eat breakfast this morning. She states she feels the leg rash has improved slightly over the ankles. She denies any fevers, chills. She had some mildly elevated blood pressures in the a.m. Review of Systems 10-point ROS is otherwise unremarkable Integumentary: Rash Physical Examination - Vital Signs Temperature: 98.2 F Blood Pressure: 144/67 Pulse: 69 Respirations: 18 Pulse Ox (%): 97 - Physical Exam General: Alert, In no apparent distress HEENT: Atraumatic, Normocephalic Neck: Supple Respiratory: Clear to auscultation bilaterally, Normal air movement Cardiovascular: Normal pulses Capillary refill: <2 Seconds Gastrointestinal: Normal bowel sounds Musculoskeletal: Swelling Integumentary: Rash(es) Neurological: Normal gait, Normal speech Lymphatics: No axilla or inguinal lymphadenopathy - Studies Laboratory Data (last 24 hrs) 11/26/24 11/26/24 11/26/24 16:01 16:01 16:01 WBC 10.00 Hgb 11.6 L Hct 34.9 L Plt Count 218 PT 13.1 H INR 1.16 Sodium 136 Potassium 3.5 BUN 12 Creatinine 0.75 Glucose 79 Magnesium 2.0 Total Bilirubin 0.2 AST 13 L ALT 17 Alkaline Phosphatase 78 Assessment And Plan - Plan Cellulitis of the right leg Lymphedema Obesity Hypothyroidism Anxiety depression -Normal WBC. Was given a dose of vancomycin and Unasyn in the ED. start Rocephin. Monitor cultures -Obtain procalcitonin -Elevate legs -Negative lower extremity venous Doppler -Consider compression stockings -Continue levothyroxine -Continue hydrochlorothiazide -DVT prophylaxis with Lovenox
[2024-11-27 11:27] LABS: Specific Gravity 1.028 (1.005-1.030); Sqamous Epithelial <5 /HPF (None Seen); Urine Bacteria None Seen /HPF (<20); Urine Bilirubin NEGATIVE (Negative); Urine Blood 2+ (Negative); Urine Clarity Clear (Clear); Urine Color Yellow (Yellow); Urine Culture Reflex Order NOT NEEDED; Urine Glucose NEGATIVE (Negative); Urine Ketones NEGATIVE (Negative); Urine Microscopic Reflex YN ORDER UMIC; Urine Mucus Slight /HPF (None Seen); Urine Nitrite NEGATIVE (Negative); Urine Protein TRACE (Negative); Urine Urobilinogen Normal (Normal); Urine WBC <5 /HPF (<5)
[2024-11-27] MEDS ORDERED: FLU (Fluarix Triv) TS24-25(6MOS UP)/PF 45 MCG/0.5 ML Syringe IM ONE (12:00)
[2024-11-28 07:47] VITALS: O2SAT 96
[2024-11-28 10:14] LABS: Absolute Eosinophils 0.1 K/uL (0-0.5); Absolute Lymphocytes (CBC) 1.9 K/uL (0.7-4.9); Absolute Monocytes 0.4 K/uL (0.1-1.3); Absolute Neutrophil 3.5 K/uL (1.8-8.0); Basophils % 0.8 % (0-1.3); Eosinophils % 2.2 % (0-4.4); Hematocrit 34.6 % (36.0-45.0); Hemoglobin 11.5 g/dL (12.0-15.0); Lymphocytes % 31.5 % (15.3-44.8); MCH 29.9 pg (27.0-35.0); MCV 90.4 fL (80-100); Monocytes % 6.3 % (3.3-12.3); Neutrophils % 59.2 % (41.7-73.7); Nucleated Red Blood Cells % 0.1 % (0-0); Platelets 231 thou/uL (152-406); RBC Red Blood Cell Count 3.83 M/uL (3.86-4.86); Red Cell Distribution Width 14.4 % (12.1-15.2)
[2024-11-28 10:28] LABS: Albumin 2.6 g/dL (3.4-5.0); Albumin/Globulin Ratio 0.5 (1.1-1.8); Alkaline Phosphatase 73 U/L (45-117); Anion Gap 10.5 mEq/L (5.0-15.0); BUN Blood Urea Nitrogen 10 mg/dL (7-18); Bicarbonate 26 mEq/L (21-32); Bilirubin Total 0.3 mg/dL (0.2-1.0); Globulin 5.5 g/dL (2.3-3.5); Glomerular Filtration Rate 89 ml/min (=/>90); Glucose Level 118 mg/dL (74-106); Potassium 3.5 mEq/L (3.5-5.1); Protein, Total 8.1 g/dL (6.4-8.2); Sodium Level 137 mEq/L (136-145)
[2024-11-28 10:29] LABS: ALT/SGPT < 14 U/L (13-56); AST/SGOT < 10 U/L (15-37)
[2024-11-28] MEDS ORDERED: FLU (Fluarix Triv) TS24-25(6MOS UP)/PF 45 MCG/0.5 ML Syringe IM ONE (12:00)
--- NOTE | 2024-11-28 14:13 | P.PN ---
Date of Service: 11/28/24 Subjective: Denies any new issues. Redness on her lower leg is getting better. She denies tenderness, fevers, chills. She is tolerating oral intake. No issues using the restroom. Review of Systems 10-point ROS is otherwise unremarkable Integumentary: Rash Physical Examination - Vital Signs Temperature: 98.2 F Blood Pressure: 144/67 Pulse: 69 Respirations: 18 Pulse Ox (%): 97 - Physical Exam General: Alert, In no apparent distress HEENT: Atraumatic, Normocephalic Neck: Supple Respiratory: Clear to auscultation bilaterally, Normal air movement Cardiovascular: Normal pulses Capillary refill: <2 Seconds Gastrointestinal: Normal bowel sounds Musculoskeletal: Swelling Integumentary: Rash(es) Neurological: Normal gait, Normal speech Lymphatics: No axilla or inguinal lymphadenopathy - Studies Laboratory Data (last 24 hrs) 11/26/24 11/26/24 11/26/24 16:01 16:01 16:01 WBC 10.00 Hgb 11.6 L Hct 34.9 L Plt Count 218 PT 13.1 H INR 1.16 Sodium 136 Potassium 3.5 BUN 12 Creatinine 0.75 Glucose 79 Magnesium 2.0 Total Bilirubin 0.2 AST 13 L ALT 17 Alkaline Phosphatase 78 Assessment And Plan - Plan Cellulitis of the right leg Lymphedema Obesity Hypothyroidism Anxiety depression -Normal WBC. -Improving on Rocephin. Will continue. Tomorrow we will switch over to Omnicef -Elevate legs -Negative lower extremity venous Doppler -Consider compression stockings -Continue levothyroxine -Continue hydrochlorothiazide -DVT prophylaxis with Lovenox
--- NOTE | 2024-11-29 09:54 | P.DS ---
Admission Date: 11/26/24 Discharge Date: 11/29/24 Disposition: ROUTINE DISCHARGE Discharge Condition: GOOD Reason for Admission: Cellulitis Brief History of Present Illness: This is a 54-year-old with a past medical history of lymphadema, anxiety/depression, hypothyroidism, morbid obesity presenting with right lower leg swelling and redness. She states she has had an episode like this since last October. She denies fevers, chills, significant pain, recent trauma. She does follow with the lymphadema clinic. She states at the clinic they wrapped her feet. Hospital Course: This is a 54-year-old female with a past medical history of lymphedema, anxiety depression, hypothyroidism, morbid obesity who presented with right lower leg swelling and redness. She was found to have cellulitis and started on IV antibiotics. Her clinical condition improved over the course of her stay. The redness decreased and her white count returned to normal. She has now been switched over to oral antibiotics upon discharge. The remainder of her medical problems are chronic and stable. She is medically optimized for discharge Vital Signs/Physical Exam: Temp Pulse Resp BP Pulse Ox 97.9 F 60 16 158/63 H 94 11/29/24 08:00 11/29/24 08:00 11/29/24 08:00 11/29/24 08:00 11/29/24 08:00 General: Alert, In no apparent distress, Obese HEENT: Atraumatic, Normocephalic Neck: Supple Respiratory: Clear to auscultation bilaterally, Normal air movement Cardiovascular: No edema, Normal pulses Capillary refill: <2 Seconds Gastrointestinal: Normal bowel sounds Musculoskeletal: No clubbing Integumentary: Rash(es) Neurological: Normal gait, Normal speech Lymphatics: No axilla or inguinal lymphadenopathy Laboratory Data at Discharge: WBC 6.00 thou/uL (4.3-10.9) 11/28/24 10:04 Hgb 11.5 g/dL (12.0-15.0) L 11/28/24 10:04 Hct 34.6 % (36.0-45.0) L 11/28/24 10:04 Plt Count 231 thou/uL (152-406) 11/28/24 10:04 PT 13.1 SECONDS (10.0-13.0) H 11/26/24 16:01 INR 1.16 11/26/24 16:01 Sodium 137 mEq/L (136-145) 11/28/24 10:04 Potassium 3.5 mEq/L (3.5-5.1) 11/28/24 10:04 BUN 10 mg/dL (7-18) 11/28/24 10:04 Creatinine 0.80 mg/dL (0.55-1.02) 11/28/24 10:04 Glucose 118 mg/dL (74-106) H 11/28/24 10:04 Magnesium 2.0 mg/dL (1.6-2.4) 11/26/24 16:01 Total Bilirubin 0.3 mg/dL (0.2-1.0) 11/28/24 10:04 AST < 10 U/L (15-37) L 11/28/24 10:04 ALT < 14 U/L (13-56) 11/28/24 10:04 Alkaline Phosphatase 73 U/L (45-117) 11/28/24 10:04 Home Medications: Levothyroxine Sodium [Tirosint] 1 tab PO DAILY 10/03/24 Omeprazole [Prilosec] 40 mg PO DAILY 10/03/24 Silver Sulfadiazine Crm [Silvadene*] 1 appl TOP BID #1 tube 10/08/24 Cefdinir [Omnicef] 300 mg PO DAILY 7 Days 11/29/24 New Medications: Cefdinir [Omnicef] 300 mg PO DAILY 7 Days Followup: NONE,NONE [Primary Care Provider] -
--- NOTE | 2024-11-29 12:06 | EKG ---
Test Date: 2024-11-26 Test Time: 17:02:56 Scientific Recruiter: YUE MEASUREMENT RESULTS: Intervals: Rate: 75 OK: 164 QRSD: 104 QT: 392 QTc: 437 [place]: P: 69 OK: 164 QRS: 66 T: 34 INTERPRETIVE STATEMENTS: Normal sinus rhythm Incomplete right bundle branch block Possible Anterior infarct, age undetermined Abnormal ECG No previous ECG available for comparison Electronically Signed On 11-29-24 12:04:41 FRONT COUNTER CLERK by Donald Conley
[2024-11-29 12:08] VITALS: BP 135/71; TEMP 97.7
== END 2024-11-29 12:09 | disposition home or self-care (01) | DRG 603 ==
LOC: ER 11:46 → ERHOLD 16:28 → 4TH 22:07
PROVIDERS: ADMIT Family Medicine; ATTEND Family Medicine
DX: L03.115 Cellulitis of right lower limb (principal); Z68.42 Body mass index [BMI] 45.0-49.9, adult; E66.01 Morbid (severe) obesity due to excess calories; F32.A Depression, unspecified; E03.9 Hypothyroidism, unspecified; F41.9 Anxiety disorder, unspecified; I25.10 Atherosclerotic heart disease of native coronary artery without angina pectoris; Z79.890 Hormone replacement therapy; Z79.899 Other long term (current) drug therapy
CPT/HCPCS: 36415; 71045; 80048; 80053; 80076; 81001; 83605; 83735; 83880; 84484; 85025; 85610; 87040; 93005; 93970; 96365; 96366; 96367; 96372; 96375; 99285; J0295; J0696; J1650; J7030; J7040